=== PATIENT | female | born 2000 | race Caucasian/White ===

== ENCOUNTER 2020-09-05 13:00 | Inpatient (IN) | payer MEDICAID, SELFPAY ==
[2020-09-05] VITALS (94 sets, daily range): BP systolic 110–165; BP diastolic 56–113; PULSE 69–245; RESP 13–16; TEMP 36.6–37.7; O2SAT 82–99; BMI 34.4
[2020-09-05 12:53] LABS: Hemoglobin 12.4 g/dL (12.0-15.0); Mean Corp Hgb Conc 32.6 g/dL (32-36); Mean Corpuscular Hgb 27.9 pg (27.0-32.0); Mean Corpuscular Volume 85.4 fL (81-99); Mean Platelet Vol. 12.6 fl (6.2-12.0); Platelet Count 277 K/mm3 (150-450); RBC Distribution Width CV 13.4 % (11.6-14.6); RBC Distribution Width SD 41.1 fl (35.1-43.9); Red Blood Count 4.45 M/mm3 (4.2-5.4); White Blood Count 13.2 K/mm3 (4.4-11.0)
[2020-09-05 12:57] LABS: ROM Internal Control Test YES-OK TO RESULT pt. (Internal QC)
[2020-09-05 12:58] LABS: ROM Patient Test POSITIVE (Negative)
[2020-09-05 13:25] LABS: AST(SGOT) 14 U/L (15-37); Alanine Aminotransfer ALT/SGPT 14 U/L (13-56); Creatinine, Serum 0.79 mg/dL (0.55-1.02); EST Glomerular Filtration Rate 98 mL/min (>60); Est Glom Filt Rate - Afr Amer 119 mL/min (>60); Estimated Creatinine Clearance 102.22 ml/min; Uric Acid 7.3 mg/dL (2.6-6.0)
[2020-09-05] MEDS: Lactated Ringers 1,000 ML 50 ML IV (13:30)
[2020-09-05] MEDS: Magnesium Sulfate 4gm/100mL 4 GM/100 ML IV.SOLN. IV (13:41)
[2020-09-05] MEDS: Labetalol (Prefilled) 20 MG/4 ML IV (13:53)
[2020-09-05] MEDS: Magnesium Sulfate 4gm/100mL 2 GM/50 ML IV.SOLN. IV (14:04)
[2020-09-05 14:07] LABS: Protein, Urine (Random) 36.7 mg/dL (<11.9); Protein:Creat Ratio 353 mg/g CRE (0-200)
[2020-09-05] MEDS: Magnesium Sulfate 20 GM/500 ML BAG IV (14:22)
[2020-09-05] MEDS: miSOPROStol 25 MCG TABLET VAGINAL (14:37)
[2020-09-05] MEDS: Labetalol 100 MG Tablet PO ×2 (15:01→21:55)
[2020-09-05] MEDS: CLARIFY ORDER NOTE (16:00)
[2020-09-05] MEDS: Oxytocin 30 units/NS 500 ml 30 UNITS/500 ML IV.SOLN IV (18:58)
[2020-09-05] MEDS: Acetaminophen 500 MG Tablet 1000 MG PO (21:08)
[2020-09-05] MEDS: Lactated Ringers 500 ML 999 ML IV (21:55)
[2020-09-05] MEDS: fentaNYL-bupivacaine (epidural) 100 ML BAG EPIDURAL (23:09)
[2020-09-06] VITALS (67 sets, daily range): BP systolic 113–166; BP diastolic 53–98; PULSE 67–109; RESP 16–18; TEMP 35.7–37.3; O2SAT 81–99
[2020-09-06] MEDS: Ondansetron 4 MG/2 ML Vial IV ×2 (00:17→16:42)
[2020-09-06] MEDS: Magnesium Sulfate 20 GM/500 ML BAG IV ×3 (00:24→19:55)
[2020-09-06] MEDS: fentaNYL-bupivacaine (epidural) 100 ML BAG EPIDURAL ×3 (03:42→13:31)
[2020-09-06] MEDS: Acetaminophen 500 MG Tablet 1000 MG PO ×2 (05:00→13:38)
[2020-09-06] MEDS: Lactated Ringers 1,000 ML 100 ML IV ×2 (06:11→15:51)
--- NOTE | 2020-09-06 08:09 | PCM.HP.OB ---
History Date of Admission: 09/05/20 Final ANGIE: 09/15/20 Gestational age: 38 Weeks and 5 Days History of this : This is a 19 year-old, 1 para 0 was admitted at 38 weeks 4 days gestation on 09/05/2020 for premature rupture of membranes, and was found to have preeclampsia with severe features. She did not have a headache upon admission. She denied any vaginal bleeding or contractions. She had good movement. She denied epigastric pain. Allergies amoxicillin Adverse Reaction (Verified 09/05/20 13:32) Swelling oxycodone [From Percocet] Adverse Reaction (Verified 09/05/20 13:31) Swelling Home Medications: Home Medications Tablet 1 tab PO DAILY 09/05/20 Smoking Status: Never smoker Number of Fetus(es): 1 NST - FHR Rate Baby A Baseline: normal Variability:: Moderate NST Reactive:: Appropriate for gestational age FHR Category:: Category I - upon admission History Past Pregnancies: Past Pregnancies Delivery Date Name GA/ Weeks Outcome Route Wt Infant Sex Labor Length Anesthesia Delivery Location Provider FOB Expected Infant Delivery Method: Spontaneous Vaginal Review of Systems Constitutional: Denies: Chills, Fever Eyes: Denies: Blurred vision HEENT: Denies: Difficulty Hearing Cardiovascular: Denies: Chest Pain Respiratory: Denies: Cough, Shortness of Breath Gastrointestinal: Denies: Diarrhea, Vomiting Genitourinary: Denies: Dysuria Skin: Denies: Rash Neurological: Denies: Blurred vision, Change in Speech, Slurred speech Hematologic/ Lymphatic: Denies: Hx of blood clot Physical Exam Vitals: Vital Signs Temp Pulse Resp BP Pulse Ox 97.8 F 71 16 128/68 H 98 09/06/20 08:03 09/06/20 08:03 09/06/20 08:03 09/06/20 08:03 09/06/20 08:03 General: Alert, Cooperative, No apparent distress Cardiovascular: Regular rate Lungs: Normal air movement Abdomen: Soft, Non-Distended, Gravid, Appropriate for Gestational Age Extremities:: No clubbing, Deep tendon reflexes - 2+, Other - edema 2+ Neurological: Cranial nerves II-XII grossly intact, Neuro grossly intact. Negative for: Slurred Speech, Clonus DIRECTOR OPERATING ROOM: Normal external genitalia Estimated gestational size: Appropriate for gestational size Presentation: Cephalic Assessment/Plan This is a 19 year-old, 1 para 0 now at 38 weeks 5 days today with premature rupture of membranes. Induction of labor was performed with Cytotec vaginally, followed by Pitocin. Epidural was placed and is adequate. Patient is on magnesium for preeclampsia prophylaxis. heart tones are currently category 1 and reassuring. Continue Pitocin induction. Expectant management for vaginal delivery. Estimated weight is less than 4500 g clinically and pelvis is clinically adequate to expect vaginal delivery.
[2020-09-06] MEDS: 0.9% Saline Lock 10 ML Syringe IV ×2 (10:02→16:42)
[2020-09-06] MEDS: Labetalol 100 MG Tablet PO ×2 (10:03→21:56)
[2020-09-06] MEDS: DiphenhydrAMINE 50 MG/ML Syringe 25 MG IV (10:03)
[2020-09-06] MEDS: Oxytocin 30 units/NS 500 ml 30 UNITS/500 ML IV.SOLN 334 UNITS IV (19:05)
[2020-09-06] MEDS: miSOPROStol 200 MCG Tablet 1000 MCG RECTAL (19:12)
[2020-09-06] MEDS: HYDROmorphone 1 MG/ML Syringe IV (19:14)
[2020-09-06] MEDS: Carboprost Tromethamine 250 MCG/ML Ampul IM (19:15)
--- NOTE | 2020-09-06 19:31 | NURSING ---
Pt decided to give assent for Hep B vac on after delivery.
--- NOTE | 2020-09-06 19:37 | PCM.OPRPT ---
Vaginal Delivery Maternal Presentation: Medically Indicated Induction Method of Induction: Pitocin, Cytotec Medical Reason for Induction: Premature Rupture of Membranes, - - preeclampsia with severe features Amniotic Membrane Rupture Type: Spontaneous at home Amniotic Fluid Description: Clear Final ANGIE: 09/15/20 Final ANGIE Source: US <20 weeks Gestational age: 38 Weeks and 5 Days Date of Procedure: 09/06/20 Pre-Operative Diagnosis: maternal exhaustion Post-Operative Diagnosis: same Surgery/ Procedure Performed: Vacuum Assisted Vaginal Delivery - outlet Type of Anesthesia: Epidural Description of Procedure: The patient was complete and pushing. She was getting very frustrated. She was pushing and labia by 4 cm for 6 pushes. Patient was very frustrated and having difficulty concentrating on pushing. I offered the patient an outlet trial of vacuum. Patient desired to proceed. The catheter was in place. Estimated weight was less than 4500 g, pelvis clinically adequate to expect vaginal delivery. Patient epidural was feeling pressure but it was still working for sharp pain. The position was LYDIA. The vacuum was placed and suction created to 550 mmHg. I pulled with 1 contraction to and the vacuum was removed with 0 pop offs. A vigorous [female] infant was delivered [LYDIA] over [a second-degree perineal laceration]. [A loose nuchal cord ?1 was easily reduced.] The remainder the infant was delivered with maternal pushing and gentle traction only in less than 30 seconds with some encouragement to focus pushing efforts. The Pitocin infusion was initiated for active management of the third stage. The cord was clamped minute as the was not immediately vigorous. The infant was attended to by the waiting nursing staff. The placenta was delivered spontaneously and intact. The cervix and vagina were intact. Immediately uterine atony was noted. Vigorous fundal massage was initiated. The Pitocin was turned up. I asked for Hemabate and Cytotec to be brought in the room. 1000 mcg of Cytotec was given. And continued fundal massage. There continued to be some atony of the lower uterine segment. Another examination was done and no occult lacerations were noted. A dose of Hemabate IM was given and at this point the uterus began to firm up. [The second-degree perineal laceration was repaired with 3-0 Vicryl suture in a running standard fashion.] Nurse was a much more firm and no significant clots were now noted. Howie was turned down to the normal rate. Sponge and needle counts were correct. A vaginal sweep was completed by me. Was given a dose of Ancef postoperatively. She was also given 1 g of Dilaudid IV during the uterine massage and evacuation because of discomfort. Placental Delivery Description: Spontaneous Placenta Disposition: Sent to Pathology Cord Vessel Description: 3 Vessels Nuchal Cord Compression: Without compression Cord Entanglement: Around neck x 1, loose Drain: Sifuentes to straight drain Estimated Blood Loss: 900 A gender: Female Episiotomy Description: None Laceration: 2nd degree - perineal Medications given after delivery: IV Pitocin Complications: None
[2020-09-06] MEDS: Cefazolin 2 GM in 0.9% Normal Saline 100 ML IV (20:28)
[2020-09-06 23:36] LABS: Hemoglobin 10.9 g/dL (12.0-15.0); Mean Corp Hgb Conc 32.1 g/dL (32-36); Mean Corpuscular Hgb 28.1 pg (27.0-32.0); Mean Corpuscular Volume 87.6 fL (81-99); Mean Platelet Vol. 12.4 fl (6.2-12.0); Platelet Count 263 K/mm3 (150-450); RBC Distribution Width CV 13.7 % (11.6-14.6); RBC Distribution Width SD 43.4 fl (35.1-43.9); Red Blood Count 3.88 M/mm3 (4.2-5.4)
[2020-09-07] VITALS (40 sets, daily range): BP systolic 126–144; BP diastolic 58–83; PULSE 69–143; RESP 14–18; TEMP 36.6–37.2; O2SAT 82–100
--- NOTE | 2020-09-07 | PLAC_PTH ---
PATIENT: OMKAR VELASQUEZ LOC: [facility] U#:[id number] AGE/SX: 19/F ROOM: WP017 RE09/05/[address]: Dr. Christina Bee MD : [id number] BED: 1 DIS: 09/10/2020 SPEC #: [id number] RECD: 09/07/20 05:07 STATUS: MARIA G REQ #: [id number] BYRON: 09/07/20 00:[address]: Christina Bee DEPT: SURGICAL PATHOLOGY RECD BY: Conrad Brown ENTERED: 09/08/20 10:18 SP TYPE: PLACENTA OTHR DR: Dr. Mary Goodson, DO Tissues: Placenta, NOS Procedures: Surgery Specimen Level V HEADER OPERATION: Vaginal delivery PRE-OP DIAGNOSIS: Preeclampsia TISSUE SUBMITTED: Placenta MICROSCOPIC DIAGNOSIS Lemus placenta (513 gm): Umbilical cord - trivascular with no inflammation. Placental membranes - no pathologic change. Placental disc - Alfredo garcia. AM:whitley 09/10/20 MICROSCOPIC DESCRIPTION Slides are reviewed. GROSS DESCRIPTION SPECIMEN: PLACENTA / CLINICAL INFORMATION: A. Weight: 3.365 kg B. Gestational Age: 38 weeks C. Sex: Female PLACENTAL WEIGHT (POST FIXATION): 513 gm PLACENTAL DIMENSIONS: 18 x 17 x 3 cm PLACENTAL SHAPE: Usual ovoid PLACENTAL WEIGHT FOR GESTATIONAL AGE: Within 10-99th percentile MEMBRANES - Present A. Insertion: Marginal B. Site of rupture from edge: At edge of placental disc C. Color of membrane: Shaffer-doe D. Abnormalities: None UMBILICAL CORD - Present, three fragments A. Color: Shaffer-doe B. Insertion: Central C. Length: 42 cm D. Diameter: 1.2 cm E. Number of vessels: Three F. Abnormalities: None PLACENTAL DISC - Present A. Color of surface: Shaffer-doe B. surface abnormalities: None C. Maternal cotyledons: Intact with minimal tears D. Attached retro placental clot: No clot E. Cut surface: Dark red and spongy F. Lesions: None G. Separate clot: Blood clots measure 13 x 10 x 2 cm SECTIONS SUBMITTED: 1. Umbilical cord ( end notched) 2. Umbilical cord, placental end 3. Membrane roll 4. Placental disc, and maternal surfaces 5. Placental disc, and maternal surfaces 6. Placental disc, and maternal surfaces AM:whitley 09/09/20 TC:5 CPT: 58185
[2020-09-07] MEDS: Acetaminophen 500 MG Tablet 1000 MG PO ×2 (02:03→10:20)
[2020-09-07] MEDS: Magnesium Sulfate 20 GM/500 ML BAG IV ×2 (05:56→16:07)
[2020-09-07] MEDS: Naproxen 250 MG Tablet 500 MG PO ×3 (06:07→22:21)
[2020-09-07 06:39] LABS: Pathology Specimen OB SEE PATHOLOGY REPORT
--- NOTE | 2020-09-07 07:48 | PCM.PN.OB ---
Subjective: Patient with some mild cramping and perineal pain controlled with conservative measures and medications. She denies headache or visual changes or epigastric pain. Average lochia. - Physical Exam Vitals/I&O's: Vital Signs Temp Pulse Resp BP Pulse Ox 98.1 F 85 16 136/74 H 98 09/07/20 07:05 09/07/20 07:13 09/07/20 07:05 09/07/20 07:13 09/07/20 07:05 Oxygen Delivery Method Room Air Weight: 93.894 kg Body Mass Index (BMI) 34.4 Intake and Output for Last 24 Hours 09/05/20 09/06/20 09/07/20 23:59 23:59 23:59 Intake Total 1849.16 / 1949.16 5406.29 / 5406.29 1703.32 / 1703.32 Output Total 1100 / 1100 4350 / 4350 850 / 850 Balance 749.16 / 849.16 1056.29 / 1056.29 853.32 / 853.32 General: Alert, Cooperative, No apparent distress Extremities: Edema - 1+ Neurological: Deep Tendon Reflexes 2+/4 and Symmetrical, Neuro grossly intact, - - no clonus Microbiology Past 72 Hours 09/05/20 15:56 Mucosa - Nose SARS-CoV-2 Antigen (Rapid) - Final Laboratory Results 09/06/20 23:10: WBC 22.0 H, RBC 3.88 L, Hgb 10.9 L, Hct 34.0 L, MCV 87.6, MCH 28.1, MCHC 32.1, RDW Std Deviation 43.4, RDW Coeff of Vickie 13.7, Plt Count 263, MPV 12.4 H Current Medications Acetaminophen (Acetaminophen 500 Mg Tablet) 1,000 mg PO Q8H PRN PRN PRN Reason: Pain Score 1-3 Last Admin: 09/07/20 02:03 Dose: 1,000 mg Documented by: Bisacodyl (Bisacodyl 10 Mg Suppository) 10 mg RECTAL UD PRN PRN Reason: If no BM Dibucaine (Dibucaine 30 Gm Tube) 1 applic TOPICAL TID PRN PRN; Protocol PRN Reason: Discomfort Hydrocortisone (Hydrocortisone 2.5% Crm) 1 applic TOPICAL TID PRN PRN; Protocol PRN Reason: Discomfort Magnesium Sulfate (20gm/500ml) 20 gm in 500 mls @ 50 mls/hr IV .Q10H [facility]; Protocol Last Infusion: 09/07/20 07:05 Dose: 2 gm/hr, 50 mls/hr Documented by: Labetalol HCl (Labetalol 100 Mg Tablet) 100 mg PO BID JESSICA Last Admin: 09/06/20 21:56 Dose: 100 mg Documented by: Methylergonovine Maleate (Methylergonovine 0.2 Mg/Ml Ampul) 0.2 mg IM X1 PRN PRN Reason: Excess bleeding/uterine atony Naproxen (Naproxen 250 Mg Tablet) 500 mg PO Q8H PRN PRN PRN Reason: Pain Score 1-3 Last Admin: 09/07/20 06:07 Dose: 500 mg Documented by: Ondansetron HCl (Ondansetron 4 Mg/2 Ml Vial) 4 mg IV Q4H PRN PRN PRN Reason: Nausea Oxycodone HCl (Oxycodone 5 Mg Tablet) 5 - 10 mg PO Q4H PRN PRN PRN Reason: Pain Score 4-10 Prochlorperazine Edisylate (Prochlorperazine 10 Mg/2 Ml Vial) 10 mg IV Q6H PRN PRN PRN Reason: NAUSEA/VOMITING Senna/Docusate Sodium (Senna/Docusate Sodium 1 Tablet) 1 - 2 tablet PO DAILY PRN PRN PRN Reason: Constipation Simethicone (Simethicone 80 Mg Tablet) 80 mg PO PCHS PRN PRN Reason: Indigestion/Stomach pain Sodium Chloride (0.9% Saline Lock 10 Ml Syringe) 5 - 15 ml IV UD PRN PRN Reason: SALINE FLUSH Medical Necessity - Tobacco Use Smoking Status: Never smoker Assessment/Plan day #1 status post vaginal delivery. Patient with preeclampsia with severe features. Blood pressure is well controlled. Continue magnesium for 24 hours postdelivery. Patient had atony without hemorrhage. Hemoglobin dropped appropriately for blood loss last night. Repeat today to make sure it stable. Patient is asymptomatic from the anemia at this time.
[2020-09-07] MEDS: Labetalol 100 MG Tablet PO ×2 (10:21→22:17)
[2020-09-07 13:47] LABS: Hematocrit 29.3 % (37-47); Hemoglobin 9.4 g/dL (12.0-15.0); Mean Corp Hgb Conc 32.1 g/dL (32-36); Mean Corpuscular Hgb 28.2 pg (27.0-32.0); Mean Platelet Vol. 11.8 fl (6.2-12.0); Platelet Count 228 K/mm3 (150-450); RBC Distribution Width CV 14.3 % (11.6-14.6); RBC Distribution Width SD 45.5 fl (35.1-43.9); Red Blood Count 3.33 M/mm3 (4.2-5.4); White Blood Count 15.7 K/mm3 (4.4-11.0)
[2020-09-07] MEDS: 0.9% Saline Lock 10 ML Syringe IV (22:22)
[2020-09-08] VITALS (11 sets, daily range): BP systolic 129–176; BP diastolic 62–93; PULSE 54–76; RESP 16; TEMP 36.8–37.1; O2SAT 97–100
[2020-09-08] MEDS: Acetaminophen 500 MG Tablet 1000 MG PO ×2 (01:35→13:47)
[2020-09-08] MEDS: Naproxen 250 MG Tablet 500 MG PO ×2 (09:03→19:33)
[2020-09-08] MEDS: Labetalol 100 MG Tablet PO (10:26)
[2020-09-08] MEDS: 0.9% Saline Lock 10 ML Syringe IV (10:27)
--- NOTE | 2020-09-08 14:45 | PCM.PN.OB ---
Objective: Doing well per patient and nursing staff. Ambulating and taking PO without difficulty. Voiding and passing flatus. . Pain controlled. - Physical Exam Vitals/I&O's: Vital Signs Temp Pulse Resp BP Pulse Ox 98.3 F 57 L 16 145/78 H 97 09/08/20 13:32 09/08/20 13:34 09/08/20 13:32 09/08/20 13:34 09/08/20 08:49 Oxygen Delivery Method Room Air Weight: 207 lb Body Mass Index (BMI) 34.4 Intake and Output for Last 24 Hours 09/06/20 09/07/20 09/08/20 23:59 23:59 23:59 Intake Total 5406.29 / 5406.29 4302.49 / 4302.49 Output Total 4350 / 4350 2650 / 2650 Balance 1056.29 / 1056.29 1652.49 / 1652.49 General: Alert, Oriented x3, Cooperative HEENT: Atraumatic, Normocephalic Neck: Trachea Midline Lungs: Clear to auscultation, Normal air movement, No rhonchi, No wheeze Cardiovascular: Regular rate, Regular Rhythm, No murmurs Abdomen: Bowel Sounds Present - Fundus firm 2 below U Extremities: No edema - Shaunna's negative Neurological: Deep Tendon Reflexes 2+/4 and Symmetrical - no clonus Psych/Mental Status: Normal Affect, Appropriate Microbiology Past 72 Hours 09/05/20 15:56 Mucosa - Nose SARS-CoV-2 Antigen (Rapid) - Final Current Medications Acetaminophen (Acetaminophen 500 Mg Tablet) 1,000 mg PO Q8H PRN PRN PRN Reason: Pain Score 1-3 Last Admin: 09/08/20 13:47 Dose: 1,000 mg Documented by: Bisacodyl (Bisacodyl 10 Mg Suppository) 10 mg RECTAL UD PRN PRN Reason: If no BM Dibucaine (Dibucaine 30 Gm Tube) 1 applic TOPICAL TID PRN PRN; Protocol PRN Reason: Discomfort Hydrocortisone (Hydrocortisone 2.5% Crm) 1 applic TOPICAL TID PRN PRN; Protocol PRN Reason: Discomfort Labetalol HCl (Labetalol 100 Mg Tablet) 100 mg PO BID JESSICA Last Admin: 09/08/20 10:26 Dose: 100 mg Documented by: Methylergonovine Maleate (Methylergonovine 0.2 Mg/Ml Ampul) 0.2 mg IM X1 PRN PRN Reason: Excess bleeding/uterine atony Naproxen (Naproxen 250 Mg Tablet) 500 mg PO Q8H PRN PRN PRN Reason: Pain Score 1-3 Last Admin: 09/08/20 09:03 Dose: 500 mg Documented by: Ondansetron HCl (Ondansetron 4 Mg/2 Ml Vial) 4 mg IV Q4H PRN PRN PRN Reason: Nausea Prochlorperazine Edisylate (Prochlorperazine 10 Mg/2 Ml Vial) 10 mg IV Q6H PRN PRN PRN Reason: NAUSEA/VOMITING Senna/Docusate Sodium (Senna/Docusate Sodium 1 Tablet) 1 - 2 tablet PO DAILY PRN PRN PRN Reason: Constipation Simethicone (Simethicone 80 Mg Tablet) 80 mg PO PCHS PRN PRN Reason: Indigestion/Stomach pain Sodium Chloride (0.9% Saline Lock 10 Ml Syringe) 5 - 15 ml IV UD PRN PRN Reason: SALINE FLUSH Last Admin: 09/08/20 10:27 Dose: 10 ml Documented by: Medical Necessity - Tobacco Use Smoking Status: Never smoker Assessment/Plan A:PPD #2 Acute blood loss anemia hemorrhage Preeclampsia with severe features P: 1) Routine and education 2) Hgb 9.4, asymptomatic. 3) VS with increasing BP, will increase Labetalol from 100mg to 200mg PO BID. Reviewed with and agrees. 4) Planning D/C home tomorrow 5) Pain management
[2020-09-08] MEDS: Labetalol 200 MG Tablet PO (19:57)
[2020-09-09] VITALS (32 sets, daily range): BP systolic 129–182; BP diastolic 72–102; PULSE 54–88; RESP 16–18; TEMP 36.3–37.3; O2SAT 97–99
[2020-09-09] MEDS: Acetaminophen 500 MG Tablet 1000 MG PO ×2 (00:52→14:11)
[2020-09-09] MEDS: 0.9% Saline Lock 10 ML Syringe IV ×2 (00:54→12:40)
--- NOTE | 2020-09-09 08:45 | PCM.PN.OB ---
Subjective: Patient seen at bedside, doing well. Patient reports good pain control. Mild lochia. Patient denies any headaches, visual changes, epigastric or right upper quadrant pain. Breast-feeding. - Physical Exam Vitals/I&O's: Vital Signs Temp Pulse Resp BP Pulse Ox 98.2 F 71 16 134/72 H 100 09/09/20 00:53 09/09/20 00:54 09/09/20 00:53 09/09/20 00:54 09/08/20 19:28 Oxygen Delivery Method Room Air Weight: 93.894 kg Body Mass Index (BMI) 34.4 Intake and Output for Last 24 Hours 09/07/20 09/08/20 09/09/20 23:59 23:59 23:59 Intake Total 4302.49 / 4302.49 Output Total 2650 / 2650 Balance 1652.49 / 1652.49 General: Alert, Oriented x3 Abdomen: Soft, Non Tender, Non-Distended, - - fundus firm Extremities: No Calf Tenderness Neurological: Cranial nerves II-XII grossly intact Current Medications Acetaminophen (Acetaminophen 500 Mg Tablet) 1,000 mg PO Q8H PRN PRN PRN Reason: Pain Score 1-3 Last Admin: 09/09/20 00:52 Dose: 1,000 mg Documented by: Bisacodyl (Bisacodyl 10 Mg Suppository) 10 mg RECTAL UD PRN PRN Reason: If no BM Dibucaine (Dibucaine 30 Gm Tube) 1 applic TOPICAL TID PRN PRN; Protocol PRN Reason: Discomfort Hydrocortisone (Hydrocortisone 2.5% Crm) 1 applic TOPICAL TID PRN PRN; Protocol PRN Reason: Discomfort Labetalol HCl (Labetalol 200 Mg Tablet) 200 mg PO BID JESSICA Last Admin: 09/08/20 19:57 Dose: 200 mg Documented by: Methylergonovine Maleate (Methylergonovine 0.2 Mg/Ml Ampul) 0.2 mg IM X1 PRN PRN Reason: Excess bleeding/uterine atony Naproxen (Naproxen 250 Mg Tablet) 500 mg PO Q8H PRN PRN PRN Reason: Pain Score 1-3 Last Admin: 09/08/20 19:33 Dose: 500 mg Documented by: Ondansetron HCl (Ondansetron 4 Mg/2 Ml Vial) 4 mg IV Q4H PRN PRN PRN Reason: Nausea Prochlorperazine Edisylate (Prochlorperazine 10 Mg/2 Ml Vial) 10 mg IV Q6H PRN PRN PRN Reason: NAUSEA/VOMITING Senna/Docusate Sodium (Senna/Docusate Sodium 1 Tablet) 1 - 2 tablet PO DAILY PRN PRN PRN Reason: Constipation Simethicone (Simethicone 80 Mg Tablet) 80 mg PO PCHS PRN PRN Reason: Indigestion/Stomach pain Sodium Chloride (0.9% Saline Lock 10 Ml Syringe) 5 - 15 ml IV UD PRN PRN Reason: SALINE FLUSH Last Admin: 09/09/20 00:54 Dose: 10 ml Documented by: Medical Necessity - Tobacco Use Smoking Status: Never smoker Assessment/Plan PPD#3, with severe pre E s/p Magnesium 1) dc home today- follow up in office tuesday at 9am 09/12/20 for BP check 2) continue labetalol 3) dc home
--- NOTE | 2020-09-09 08:47 | DCINST_ITS ---
Discharge Diet: No Restrictions Discharge Activity: Return to Normal Activity, May not drive while taking narcotic pain medications., May Shower May resume sexual activity in: 4-6 weeks Additional Activity Instructions:: Nothing in the vagina for 4-6 weeks. You may return to work/school in 6 weeks. Call your doctor if your incision/area has: Continuous Slow Oozing, Sudden Increased Bleeding, Increased Pain/ Swelling, Increased Redness, Foul Smelling Discharge Additional Instructions: If you experience any of the following, contact your healthcare provider. * Bleeding that soaks a pad every hour for 2 hours * Fever 100.4 or higher * Unrelieved incision or abdominal pain * Swelling, redness, discharge or bleeding from your incision or episiotomy site * Your incision begins to separate * Problems urinating (including inability to urinate or burning while urinating). * Visual changes * Severe headache * Flu-like symptoms * Pain or redness in one of both of your breasts * Pain, warmth, tenderness or swelling in your legs, especially the calf area * Frequent nausea and vomiting * Symptoms of depression or anxiety If you experience any of the following, call 911 or go to the nearest Emergency Room. * Chest pain * Problems breathing * Seizure activity * Partial or complete paralysis of a body part, slurred speech, weakness or drooping of the face, or a sudden inability to walk or hold your balance Allergies/Adverse Reactions: Allergies amoxicillin Adverse Reaction (Verified 09/05/20 13:32) Swelling oxycodone [From Percocet] Adverse Reaction (Verified 09/05/20 13:31) Swelling Medications to take at Discharge Tablet 1 tab PO DAILY 09/05/20 Labetalol [Trandate (Beta Dejuan)] 200 mg PO BID #60 tab 09/09/20 Naproxen [Naprosyn] 500 mg PO Q8H PRN PRN #30 tab 09/09/20 The following prescriptions were given: Naproxen [Naprosyn] 500 mg PO Q8H PRN PRN #30 tab PRN Reason: Pain Score 1-3 Transmission Status: Pending to [facility] Labetalol [Trandate (Beta Dejuan)] 200 mg PO BID #60 tab Transmission Status: Pending to [facility] Please Follow Up With: Christina Bee MD - [phone] When: Follow in office tuesday09/12/20 at 9am for BP check. Primary Care Physician: Mary Goodson DO [Primary Care Provider] - Test Results: Test results from this visit will be discussed in further detail at your follow- up appointment, if applicable.
[2020-09-09] MEDS: Labetalol 200 MG Tablet PO (09:02)
--- NOTE | 2020-09-09 11:12 | NURSING ---
Pt updated on POC concerning elevated Blood pressures. Will recheck BP at [address] Valerio on BP. Also discussed giving labetalol at 1400. Pt verbalzed understanding
[2020-09-09] MEDS: Labetalol 200 MG Tablet 300 MG PO ×2 (12:39→20:16)
--- NOTE | 2020-09-09 17:42 | NURSING ---
Pt denies symptoms of elevated BP and states, I'm just so stressed out about my BP being high and taken so often. I just want to go home.
[2020-09-09] MEDS: NIFEdipine 30 MG Tablet PO ×2 (18:15→18:16)
[2020-09-09] MEDS: Naproxen 250 MG Tablet 500 MG PO (20:16)
[2020-09-10] VITALS (7 sets, daily range): BP systolic 111–142; BP diastolic 62–76; PULSE 56–73; RESP 16–18; TEMP 36.7–37.2; O2SAT 99
[2020-09-10] MEDS: 0.9% Saline Lock 10 ML Syringe IV (01:13)
[2020-09-10] MEDS: Labetalol 200 MG Tablet 300 MG PO (05:30)
[2020-09-10] MEDS: Naproxen 250 MG Tablet 500 MG PO (05:30)
--- NOTE | 2020-09-10 09:02 | PN.OBGYN_ITS ---
Subjective: Patient denies headache, will disturbances or epigastric pain. She is had a bowel movement, her pain is well controlled. She is ambulating and urinating without difficulty. - Physical Exam Vitals/I&O's: Vital Signs Temp Pulse Resp BP Pulse Ox 98.4 F 65 18 111/62 99 09/10/20 05:24 09/10/20 05:24 09/10/20 05:24 09/10/20 05:24 09/10/20 05:23 Oxygen Delivery Method Room Air Weight: 93.894 kg Body Mass Index (BMI) 34.4 General: Alert, Cooperative, No apparent distress Extremities: Edema - 2+ Neurological: Deep Tendon Reflexes 2+/4 and Symmetrical, Neuro grossly intact Current Medications Acetaminophen (Acetaminophen 500 Mg Tablet) 1,000 mg PO Q8H PRN PRN PRN Reason: Pain Score 1-3 Last Admin: 09/09/20 14:11 Dose: 1,000 mg Documented by: Bisacodyl (Bisacodyl 10 Mg Suppository) 10 mg RECTAL UD PRN PRN Reason: If no BM Dibucaine (Dibucaine 30 Gm Tube) 1 applic TOPICAL TID PRN PRN; Protocol PRN Reason: Discomfort Hydrocortisone (Hydrocortisone 2.5% Crm) 1 applic TOPICAL TID PRN PRN; Protocol PRN Reason: Discomfort Labetalol HCl (Labetalol 200 Mg Tablet) 300 mg PO TID [facility] Last Admin: 09/10/20 05:30 Dose: 300 mg Documented by: Methylergonovine Maleate (Methylergonovine 0.2 Mg/Ml Ampul) 0.2 mg IM X1 PRN PRN Reason: Excess bleeding/uterine atony Naproxen (Naproxen 250 Mg Tablet) 500 mg PO Q8H PRN PRN PRN Reason: Pain Score 1-3 Last Admin: 09/10/20 05:30 Dose: 500 mg Documented by: Nifedipine (Nifedipine 30 Mg Tablet) 30 mg PO DAILY [facility] Last Admin: 09/09/20 18:16 Dose: 30 mg Documented by: Ondansetron HCl (Ondansetron 4 Mg/2 Ml Vial) 4 mg IV Q4H PRN PRN PRN Reason: Nausea Prochlorperazine Edisylate (Prochlorperazine 10 Mg/2 Ml Vial) 10 mg IV Q6H PRN PRN PRN Reason: NAUSEA/VOMITING Senna/Docusate Sodium (Senna/Docusate Sodium 1 Tablet) 1 - 2 tablet PO DAILY PRN PRN PRN Reason: Constipation Simethicone (Simethicone 80 Mg Tablet) 80 mg PO PCHS PRN PRN Reason: Indigestion/Stomach pain Sodium Chloride (0.9% Saline Lock 10 Ml Syringe) 5 - 15 ml IV UD PRN PRN Reason: SALINE FLUSH Last Admin: 09/10/20 01:13 Dose: 10 ml Documented by: Medical Necessity - Tobacco Use Smoking Status: Never smoker Assessment/Plan day #3 Pressures are better controlled with labetalol and Procardia. Prescriptions were given for patient to take at home. Follow-up in the office in 2 days as scheduled. She has a home blood pressure cuff and I recommended that she monitor her blood pressures and call us if they got into the severe range. Call us if any symptoms of severe preeclampsia. Patient is comfortable with this plan. Discharge home today.
[2020-09-10] MEDS: Acetaminophen 500 MG Tablet 1000 MG PO (10:37)
[2020-09-10] MEDS: NIFEdipine 30 MG Tablet PO (10:37)
== END 2020-09-10 11:00 | disposition home or self-care (01) | DRG 560 ==
LOC: WPOUT 13:02 → WP 13:02
PROVIDERS: Admitting Provider Obstetrics & Gynecology; PCP Internal Medicine; Referring Provider Obstetrics & Gynecology; Visit Provider Obstetrics & Gynecology
DX: O75.81 Maternal exhaustion complicating labor and delivery (principal); O70.1 Second degree perineal laceration during delivery; O99.02 Anemia complicating childbirth; D62 Acute posthemorrhagic anemia; O72.1 Other immediate postpartum hemorrhage; O14.14 Severe pre-eclampsia complicating childbirth; O42.92 Full-term premature rupture of membranes, unspecified as to length of time between rupture and onset of labor; O69.1XX0 Labor and delivery complicated by cord around neck, with compression, not applicable or unspecified; Z3A.38 38 weeks gestation of pregnancy; Z37.0 Single live birth
CPT/HCPCS: 59025; 59050; 82565; 82570; 84112; 84156; 84450; 84460; 84550; 85027; 86850; 86900; 86901; 87426; 88307; 99218; J7120; A4216; G0378; J2405

== ENCOUNTER → 2021-01-15 16:14 | Outpatient (CLI) | payer MEDICAID, SELFPAY ==
[2021-01-15 13:32] VITALS: BMI 30.7
[2021-01-21 16:18] LABS: HPV Reflexed? NOT INDICATED
== END ==
PROVIDERS: PCP Internal Medicine; Visit Provider Obstetrics & Gynecology
DX: Z12.4 Encounter for screening for malignant neoplasm of cervix (principal)
CPT/HCPCS: 88175; G0145

== ENCOUNTER → 2023-06-22 | Outpatient (CLI) | payer BC, OTHER, MEDICAID, SELFPAY ==
[2023-06-22 17:31] LABS: Protein, Urine (Random) 18.8 mg/dL (<11.9); Protein:Creat Ratio 79 mg/g CRE (0-200)
[2023-06-24 22:06] LABS: Chlamydia By Nucleic Acid AMP Negative (Negative); Gonococcus By Nucleic Acid AMP Negative (Negative)
== END | disposition home or self-care (01) ==
LOC: LABSPEC 14:43
PROVIDERS: PCP Internal Medicine; Referring Provider Obstetrics & Gynecology; Visit Provider Obstetrics & Gynecology
DX: O09.299 Supervision of pregnancy with other poor reproductive or obstetric history, unspecified trimester (principal); Z3A.00 Weeks of gestation of pregnancy not specified
CPT/HCPCS: 82570; 84156; 87086; 87088; 87491; 87591

== ENCOUNTER → 2023-07-07 | Outpatient (CLI) | payer BC, MEDICAID, SELFPAY ==
[2023-07-07 13:21] LABS: NATERA MAILED SPECIMEN
[2023-07-07 13:45] LABS: Absolute Lymphocyte Count 1.36 X10^3/uL (0.83-4.51); Absolute Neutrophil Count 7.5 X10^3/uL (2.0-7.7); Basophil# 0.03 X10^3/uL; Basophil% 0.3 % (0-1); Eosinophil# 0.06 X10^3/uL; Eosinophils% 0.6 % (0-5); Hematocrit 38.7 % (37-47); Hemoglobin 13.1 g/dL (12.0-15.0); Lymphocyte # 1.36 X10^3/ul (0.83-4.51); Lymphocyte % 14.5 % (19-41); Mean Corp Hgb Conc 33.9 g/dL (32-36); Mean Corpuscular Hgb 29.8 pg (27.0-32.0); Mean Corpuscular Volume 88.2 fL (81-99); Mean Platelet Vol. 10.4 fl (6.2-12.0); Monocyte# 0.41 X10^3/uL; Monocyte% 4.4 % (0-10); NRBC Flagged by Analyzer 0 % (0-5); Neutrophil # 7.48 X10^3/uL (2.7-7.7); Neutrophil % 79.8 % (47-70); Platelet Count 281 K/mm3 (150-450); RBC Distribution Width CV 12.7 % (11.6-14.6); RBC Distribution Width SD 41.3 fl (35.1-43.9); Red Blood Count 4.39 M/mm3 (4.2-5.4); White Blood Count 9.4 K/mm3 (4.4-11.0)
[2023-07-07 14:36] LABS: ALB/GLOB Ratio 0.8 RATIO (0.9-2.4); AST(SGOT) 18 U/L (15-37); Alanine Aminotransfer ALT/SGPT 24 U/L (13-56); Albumin, Serum 3.4 g/dL (3.2-5.0); Alkaline Phosphatase 114 U/L (45-117); Anion Gap 5 (5-15); BUN 7 mg/dL (7-18); BUN/Creat Ratio 11.6 RATIO (10-20); Calcium,Total 8.9 mg/dL (8.5-10.1); Chloride 105 mmol/L (98-107); EST Glomerular Filtration Rate 130 mL/min (>60); Est Glom Filt Rate - Afr Amer 158 mL/min (>60); Globulin 4.2 g/dL (2.2-4.2); Glucose 95 mg/dL (74-106); Glucose Challenge Gest 1H 50g 95 mg/dL (70-140); Potassium 3.5 mmol/L (3.5-5.1); Protein, Total 7.6 g/dL (6.4-8.2); Sodium Level 136 mmol/L (136-145)
[2023-07-07 15:26] LABS: HIV - WCH Non-Reactive (Nonreactive); Hepatitis B Surface Antigen Non-Reactive (Nonreactive); Hepatitis C Antibody Non-Reactive (Nonreactive); Rubella IgG Reactive (Nonreactive); Syphilis Antibodies Non-reactive
== END | disposition home or self-care (01) ==
PROVIDERS: PCP Nurse Practitioner Family; Referring Provider Obstetrics & Gynecology; Visit Provider Obstetrics & Gynecology
DX: Z34.81 Encounter for supervision of other normal pregnancy, first trimester (principal)
CPT/HCPCS: 36415; 80053; 82950; 85025; 86703; 86762; 86780; 86803; 86850; 86900; 86901; 87340

== ENCOUNTER → 2023-09-09 | Outpatient (CLI) | payer BC, MEDICAID, SELFPAY | END | disposition home or self-care (01) | LOC: LABSPEC 12:01 | PROVIDERS: PCP Nurse Practitioner Family; Visit Provider Advanced Practice Midwife | DX: N89.8 Other specified noninflammatory disorders of vagina (principal) | CPT/HCPCS: 87086 ==

== ENCOUNTER → 2023-10-27 | Outpatient (CLI) | payer BC, MEDICAID, SELFPAY ==
[2023-10-27 12:02] LABS: Absolute Lymphocyte Count 1.46 X10^3/uL (0.83-4.51); Absolute Neutrophil Count 9.1 X10^3/uL (2.0-7.7); Basophil# 0.03 X10^3/uL; Basophil% 0.3 % (0-1); Eosinophil# 0.08 X10^3/uL; Eosinophils% 0.7 % (0-5); Hematocrit 36.5 % (37-47); Hemoglobin 11.7 g/dL (12.0-15.0); Lymphocyte # 1.46 X10^3/ul (0.83-4.51); Mean Corp Hgb Conc 32.1 g/dL (32-36); Mean Corpuscular Hgb 28.5 pg (27.0-32.0); Mean Platelet Vol. 10.2 fl (6.2-12.0); Monocyte# 0.49 X10^3/uL; Monocyte% 4.4 % (0-10); NRBC Flagged by Analyzer 0 % (0-5); Neutrophil # 9.09 X10^3/uL (2.7-7.7); Neutrophil % 81.1 % (47-70); Platelet Count 306 K/mm3 (150-450); RBC Distribution Width CV 13.6 % (11.6-14.6); RBC Distribution Width SD 44.2 fl (35.1-43.9); White Blood Count 11.2 K/mm3 (4.4-11.0)
[2023-10-27 12:46] LABS: Glucose Challenge Gest 1H 50g 121 mg/dL (70-140)
[2023-10-27 13:09] LABS: HIV - WCH Non-Reactive (Nonreactive); Syphilis Antibodies Non-reactive
== END | disposition home or self-care (01) ==
LOC: LAB 11:27
PROVIDERS: PCP Nurse Practitioner Family; Referring Provider Registered Nurse; Visit Provider Registered Nurse
DX: Z34.90 Encounter for supervision of normal pregnancy, unspecified, unspecified trimester (principal)
CPT/HCPCS: 36415; 82950; 85025; 86703; 86780; 86850; 86900; 86901

== ENCOUNTER 2024-01-02 11:45 | Inpatient (IN) | payer BC, MEDICAID, SELFPAY ==
[2024-01-02] VITALS (31 sets, daily range): BP systolic 106–146; BP diastolic 55–93; PULSE 67–92; RESP 16–21; TEMP 36.4–37.2; O2SAT 96–100; BMI 36.0
--- OUTSIDE RECORDS SUMMARY | 2024-01-02 13:46 | XMS RPT_ITS | CCD ---
Author Name Unknown Address [address] [place] [address] Organization [facility] Care Team Providers Care [facility] Pharmacy Technician Name Role Phone NONE, NONE Unavailable Unavailable WOOD JENIFER A Unavailable Unavailable WOOD JENIFER A Unavailable Unavailable NISHI FRASER Unavailable Unavailable NONE, NONE Unavailable Unavailable Arian Garcia Attending Unavailable Channing Hope Primary Care Unavailable [facility] Unavailable Eliot Sanchez Admitting Unavailable Eliot Sanchez Attending Unavailable Roc Dotson Unavailable Unavailable Oberhauser, Sushila L Unavailable Unavailable Vanda Lopez Unavailable Unavailable Oberhauser, Sushila Unavailable Unavailable Oberhauser, Sushila L Unavailable Unavailable Oberhauser, Sushila L Unavailable Unavailable Unavailable Oberhauser, Sushila L Unavailable [phone] Sushila Cruz Unavailable Unavailable BECKY CHAVEZ Attending Unavailab BECKY Briggs Admitting Unavailab le OBERHAUSER, SUSHILA Primary Care Unavailable Pooja Garsia Unavailable Unavailable Unavailable ROLY GARSIA PAWEL Primary Care Unavailab le Self, Referral Referring Unavailable ROLY GARSIA PAWEL Attending Unavailab ryland GARSIA, ROLY HOFFMAN PAWEL Primary Care Unavailab CHELSY Ortiz Attending CHELSY Galaviz Referring ROLY Sullivan PAWEL Referring Unavailab ROLY Colin PAWEL Primary Care Unavailab le ROLY GARSIA PAWEL Attending Unavailab le Self, Referral Referring Unavailable ADY, ROLY POOJA PAWEL Primary Care Unavailab le GARSIA, PROPERTY MANAGEMENT ASSISTANT POOJA PAWEL Attending Unavailab le GARSIA, PROPERTY MANAGEMENT ASSISTANT POOJA PAWEL Referring Unavailab le GARSIA, PROPERTY MANAGEMENT ASSISTANT POOJA PAWEL Primary Care Unavailab le GARSIA, PROPERTY MANAGEMENT ASSISTANT POOJA PAWEL Attending Unavailab le Driscoll BUTTON MAKER AND INSTALLER-PROPERTY MANAGEMENT ASSISTANT, Pooja D Primary Care Provider Oberhauser DO, Sushila L Unavailable Oberhauser DO, Sushila L Unavailable Driscoll BUTTON MAKER AND INSTALLER-PROPERTY MANAGEMENT ASSISTANT, Pooja D Unavailable Driscoll BUTTON MAKER AND INSTALLER-PROPERTY MANAGEMENT ASSISTANT, Pooja D Primary Care Provider Driscoll BUTTON MAKER AND INSTALLER-PROPERTY MANAGEMENT ASSISTANT, Pooja D Unavailable SARAI HENSLEY Primary Care Unavailable DEEPAK HILARIO Attending Unavailable JASBIR LEVINE Referring Unavailabl e DRISCOLL, POOJA D Attending Unavailable DRISCOLL, POOJA D Primary Care Unavailable DRISCOLL, POOJA D Attending Unavailable DRISCOLL, POOJA D Primary Care Unavailable DRISCOLL, POOJA D Attending Unavailable DRISCOLL, POOJA D Primary Care Unavailable DRISCOLL, POOJA D Attending Unavailable DRISCOLL, POOJA D Primary Care Unavailable Allergies Allergy Classification Reported Allergen(s) Allergy Type Date of Onset Reaction(s) Facility (1 source) Acetaminophen / oxyCODONE; Translations: [Percocet 5/325] Drug Allergy [facility] Repository (12 sources) Amoxicillin; Translations: [amoxicillin] Drug Allergy 8 Rash, Swelling [facility] Repository (1 source) Acetaminophen / oxyCODONE Drug Allergy Hives/Urticaria [facility] (5 sources) oxyCODONE; Translations: [OXYCODONE] Drug Allergy 1 Swelling [facility] Repository Medications Current Medications Medication Drug Class(es) Dates Sig (Normalized) Sig (Original) azithromycin 250 mg oral tablet (3 sources) Macrolide Antimicrobial Start: 12-14-2023 End: 12-18-2023 azithromycin (Zithromax) 250 mg tablet Indications: Acute non-recurrent maxillary sinusitis Take 2 tablets (500 mg) by mouth once daily for 1 day, THEN 1 tablet (250 mg) once daily for 4 days. Take 2 tabs (500 mg) by mouth today, than 1 daily for 4 days.. 6 tablet 0 12/14/2023 12/18/2023 Active Completed/Discontinued Medications Medication Drug Class(es) Dates Sig (Normalized) Sig (Original) 24 hr buPROPion hydrochloride 150 mg extended release oral tablet (4 sources) Aminoketone Start: 10-08-2019 End: 03-17-2021 take 1 tablet by mouth twice daily buPROPion HCl ER (XL) 150 MG Oral Tablet Extended Release 24 Hour Take 1 tablet po bid anxiety Quantity: 60 Refills: 2 Ordered: 23-Jan-2020 Sushila Goodson DO Start : 08-Oct-2019 End : 17-Mar-2021 Complete Problems Active Problems Problem Classification Problem Date Documented Da te Episodic/Chronic Abdominal pain (10 sources) Chronic abdominal pain; Translations: [Abdominal pain, unspecified site] Episodic Administrative/social admission (2 sources) Patient encounter status; Translations: [Other reasons for seeking consultation] Episodic Anxiety disorders (20 sources) Anxiety; Translations: [Anxiety state, unspecified] Onset: 12-15-2022 07-07-2023 Chronic Complications of surgical procedures or medical care (5 sources) Complication of ear piercing; Translations: [Open wound of external ear, unspecified site, complicated] Episodic Disorders of lipid metabolism (12 sources) Mixed hyperlipidemia; Translations: [Mixed hyperlipidemia] Onset: 12-15-2022 12-15-2022 Chronic External Injury - Adverse effects of medical drugs (1 source) Adverse effect of 4-Aminophenol derivatives, initial encounter; Translations: [ADVRS EFF 4-AMINOPHENOL DERIV INIT] Onset: 05-24-2018 Malaise and fatigue (3 sources) Malaise and fatigue; Translations: [Chronic fatigue, unspecified] Onset: 12-15-2022 12-15-2022 Chronic Malaise and fatigue (4 sources) Malaise and fatigue; Translations: [Other malaise and fatigue] Episodic Mood disorders (20 sources) Depressive disorder; Translations: [Depressive disorder, not elsewhere classified] Onset: 08-23-2018 07-07-2023 Chronic Other congenital anomalies (6 sources) Spina bifida occulta; Translations: [Congenital deformity of spine] Onset: 04-23-2015 07-07-2023 Chronic Other nutritional; endocrine; and metabolic disorders (8 sources) Body mass index 30+ - obesity; Translations: [Body Mass Index 30.0-30.9, adult] Chronic Other nutritional; endocrine; and metabolic disorders (10 sources) Weight loss; Translations: [Loss of weight] Episodic Other nutritional; endocrine; and metabolic disorders (2 sources) Overweight in adulthood with body mass index of 25 or more but less than 30; Translations: [Body Mass Index 29.0-29.9, adult] Episodic Other skin disorders (3 sources) Localized swelling, mass and lump, head; Translations: [LOCALIZED SWELLING MASS AND LUMP HEAD] Onset: 05-23-2018 Episodic Other upper respiratory disease (3 sources) Allergic rhinitis; Translations: [Allergic rhinitis, unspecified] Onset: 05-23-2014 07-07-2023 Chronic Other upper respiratory disease (1 source) Seasonal allergic rhinitis; Translations: [Other seasonal allergic rhinitis] 12-14-2023 Chronic Other upper respiratory disease (2 sources) Other seasonal allergic rhinitis; Translations: [Other seasonal allergic rhinitis] Onset: 07-07-2023 Chronic Other upper respiratory infections (7 sources) Acute upper respiratory infection; Translations: [Acute upper respiratory infections of unspecified site] Onset: 12-14-2023 07-11-2021 Episodic Residual codes; unclassified (2 sources) Influenza vaccination declined; Translations: [Vaccination not carried out because of patient refusal] Onset: 08-10-2022 Episodic Thyroid disorders (20 sources) Hypothyroidism; Translations: [Unspecified acquired hypothyroidism] Onset: 12-15-2022 12-15-2022 Chronic Unclassified (2 sources) COUGH, RUNNY NOSE 07-11-2021 Past or Other Problems Problem Classification Problem Date Documented Da te Episodic/Chronic Headache; including migraine (3 sources) Headache; Translations: [Headache] Onset: 07-11-2017 07-07-2023 Episodic Mood disorders (3 sources) Mood swings; Translations: [Emotional lability] Onset: 03-12-2013 07-07-2023 Episodic Noninfectious gastroenteritis (20 sources) Chronic diarrhea; Translations: [Diarrhea] Onset: 12-15-2022 12-15-2022 Episodic Other connective tissue disease (3 sources) Biceps tendinitis; Translations: [Bicipital tendinitis, unspecified shoulder] Onset: 03-31-2015 07-07-2023 Episodic Other connective tissue disease (3 sources) Muscle weakness; Translations: [Muscle weakness (generalized)] Onset: 03-31-2015 07-07-2023 Episodic Other connective tissue disease (3 sources) Impingement syndrome of shoulder region; Translations: [Impingement syndrome of unspecified shoulder] Onset: 03-31-2015 07-07-2023 Episodic Other gastrointestinal disorders (3 sources) Diarrhea; Translations: [Diarrhea, unspecified] Onset: 07-10-2012 07-07-2023 Episodic Other non-traumatic joint disorders (3 sources) Shoulder pain; Translations: [Pain in unspecified shoulder] Onset: 03-31-2015 07-07-2023 Episodic Other skin disorders (13 sources) Loss of hair; Translations: [Alopecia, unspecified] Onset: 12-15-2022 12-15-2022 Episodic Other skin disorders (5 sources) Acne vulgaris; Translations: [Acne vulgaris] Onset: 07-07-2023 07-07-2023 Episodic Other skin disorders (1 source) Acne vulgaris; Translations: [Acne vulgaris] Onset: 07-07-2023 Episodic Residual codes; unclassified (3 sources) Impulsive character; Translations: [Impulsiveness] Onset: 03-12-2013 07-07-2023 Episodic Spondylosis; intervertebral disc disorders; other back problems (6 sources) Low back pain; Translations: [Low back pain] Onset: 04-23-2015 07-07-2023 Episodic Unclassified (3 sources) Onset: 07-07-2023 Resolved: 12-14-2023 07-07-2023 NEGATED: Highlighted row has not occurred!Residual codes; unclassified (15 sources) Disease Episodic Results Test Name Value Interpretation Reference Range Facil ity Vital Signs Date Time Vital Sign Value Performing Clinician Facility 07-07-2023 14:12040 Body height 165.1 cm Pooja DONAHUE Work Phone: [facility] 07-07-2023 14:12-040 Body mass index (BMI) [Ratio] 31.62 kg/m2 Pooja DONAHUE Work Phone: [facility] 07-07-2023 14:12040 Body weight 86.18 kg Pooja DONAHUE Work Phone: [facility] 07-07-2023 14:12-0400 Diastolic blood pressure 73 mm[Hg] Pooja Driscoll BUTTON MAKER AND INSTALLER-PROPERTY MANAGEMENT ASSISTANT Work Phone: [facility] 07-07-2023 14:12-0400 Heart rate 98 /min Pooja Driscoll BUTTON MAKER AND INSTALLER-PROPERTY MANAGEMENT ASSISTANT Work Phone: [facility] 07-07-2023 14:12-0400 SaO2% (BldA) [Mass fraction] 99 % Pooja Driscoll BUTTON MAKER AND INSTALLER-PROPERTY MANAGEMENT ASSISTANT Work Phone: [facility] 07-07-2023 14:12-0400 Systolic blood pressure 105 mm[Hg] Pooja Driscoll BUTTON MAKER AND INSTALLER-PROPERTY MANAGEMENT ASSISTANT Work Phone: [facility] 08-10-2022 13:31-0400 Body height 165.1 cm oPoja Garsia Work Phone: [facility] Work Phone: 08-10-2022 13:31-0400 Body mass index (BMI) [Ratio] 29.62 kg/m2 Pooja Garsia Work Phone: [facility] Work Phone: 08-10-2022 13:31-0400 Body surface area Derived from formula 1.88 m2 Pooja Garsia Work Phone: [facility] Work Phone: 08-10-2022 13:31-0400 Body weight 80.74 kg Pooja Garsia Work Phone: [facility] Work Phone: 08-10-2022 13:31-0400 Diastolic blood pressure 80 mm[Hg] Pooja Garsia Work Phone: [facility] Work Phone: 08-10-2022 13:31-0400 Heart rate 86 /min Pooja Garsia Work Phone: [facility] Work Phone: 08-10-2022 13:31-0400 Systolic blood pressure 112 mm[Hg] Pooja D Garsia Work Phone: [facility] Work Phone: 06-24-2022 09:33-0400 Body height 165.1 cm Pooja D Garsia Work Phone: [facility] Work Phone: 06-24-2022 09:33-0400 Body mass index (BMI) [Ratio] 30.45 kg/m2 Pooja D Garsia Work Phone: [facility] Work Phone: 06-24-2022 09:33-0400 Body surface area Derived from formula 1.9 m2 Pooja D Garsia Work Phone: [facility] Work Phone: 06-24-2022 09:33-0400 Body weight 83 kg Pooja D Garsia Work Phone: [facility] Work Phone: 06-24-2022 09:33-0400 Diastolic blood pressure 85 mm[Hg] Pooja D Garsia Work Phone: [facility] Work Phone: 06-24-2022 09:33-0400 Heart rate 84 /min Pooja D Garsia Work Phone: [facility] Work Phone: 06-24-2022 09:33-0400 Systolic blood pressure 129 mm[Hg] Pooja D Garsia Work Phone: [facility] Work Phone: 05-11-2022 14:47-0400 Body height 165.1 cm Pooja D Garsia Work Phone: [facility] Work Phone: 05-11-2022 14:47-0400 Body mass index (BMI) [Ratio] 30.79 kg/m2 Pooja D Garsia Work Phone: [facility] Work Phone: 05-11-2022 14:47-0400 Body surface area Derived from formula 1.91 m2 Pooja Garsia Work Phone: [facility] Work Phone: 05-11-2022 14:47-0400 Body weight 83.91 kg Pooja Muñoz Ady Work Phone: [facility] Work Phone: 05-11-2022 14:47-0400 Diastolic blood pressure 80 mm[Hg] Pooja Muñoz Ady Work Phone: [facility] Work Phone: 05-11-2022 14:47-0400 Heart rate 72 /min Pooja Muñoz Ady Work Phone: [facility] Work Phone: 05-11-2022 14:47-0400 SaO2% (BldA) [Mass fraction] 98 % Pooja Garsia Work Phone: [facility] Work Phone: 05-11-2022 14:47-0400 Systolic blood pressure 132 mm[Hg] Pooja Garsia Work Phone: [facility] Work Phone: 04-27-2022 15:58-0400 Body height 165.1 cm Pooja Wanda Ady Work Phone: [facility] Work Phone: 04-27-2022 15:58-0400 Body mass index (BMI) [Ratio] 30.29 kg/m2 Pooja Wanda Garsia Work Phone: [facility] Work Phone: 04-27-2022 15:58-0400 Body surface area Derived from formula 1.9 m2 Pooja Muñoz Garsia Work Phone: [facility] Work Phone: 04-27-2022 15:58-0400 Body weight 82.55 kg Pooja Garsia Work Phone: [facility] Work Phone: 04-27-2022 15:58-0400 Diastolic blood pressure 86 mm[Hg] Pooja Churchkins Work Phone: [facility] Work Phone: 04-27-2022 15:58-0400 Heart rate 60 /min Pooja Churchkins Work Phone: [facility] Work Phone: 04-27-2022 15:58-0400 Systolic blood pressure 124 mm[Hg] Pooja Garsia Work Phone: [facility] Work Phone: 07-11-2021 14:41-0400 Body height 165.1 cm Sushila Goodson Other Phone: [facility] 07-11-2021 14:41-0400 Body temperature 98.96 [degF] Sushila Oberhauser Other Phone: [facility] 07-11-2021 14:41-0400 Diastolic blood pressure 91 mm[Hg] Sushila Oberhauser Other Phone: [facility] 07-11-2021 14:41-0400 Heart rate 81 /min Sushila Oberkaneer Other Phone: [facility] 07-11-2021 14:41-0400 Respiratory rate 16 /min Sushila Oberhauser Other Phone: [facility] 07-11-2021 14:41-0400 SaO2% (BldA) [Mass fraction] 98 % Sushila Oberkaneer Other Phone: [facility] 07-11-2021 14:41-0400 Systolic blood pressure 139 mm[Hg] Sushila Oberhauser Other Phone: [facility] 04-28-2021 08:44-0400 Body height 165.1 cm Sushila L Oberhauser Work Phone: [facility] Work Phone: 04-28-2021 08:44-0400 Body mass index (BMI) [Ratio] 29.12 kg/m2 Sushila L Oberhauser Work Phone: [facility] Work Phone: 04-28-2021 08:44-0400 Body surface area Derived from formula 1.87 m2 Sushila L Oberhauser Work Phone: [facility] Work Phone: 04-28-2021 08:44-0400 Body temperature 97.3 [degF] Sushila L Oberhauser Work Phone: [facility] Work Phone: 04-28-2021 08:44-0400 Body weight 79.38 kg Sushila L Oberhauser Work Phone: [facility] Work Phone: 04-28-2021 08:44-0400 Diastolic blood pressure 77 mm[Hg] Sushila L Oberhauser Work Phone: [facility] Work Phone: 04-28-2021 08:44-0400 Heart rate 72 /min Sushila L Oberhauser Work Phone: [facility] Work Phone: 04-28-2021 08:44-0400 Systolic blood pressure 117 mm[Hg] Sushila L Oberhauser Work Phone: [facility] Work Phone: 03-17-2021 08:48-0400 Body height 165.1 cm Sushila L Oberhauser Work Phone: [facility] Work Phone: 03-17-2021 08:48-0400 Body mass index (BMI) [Ratio] 29.12 kg/m2 Sushila L Oberhauser Work Phone: [facility] Work Phone: 03-17-2021 08:48-0400 Body surface area Derived from formula 1.87 m2 Sushila L Oberhauser Work Phone: [facility] Work Phone: 03-17-2021 08:48-0400 Body temperature 97.8 [degF] Sushila L Oberhauser Work Phone: [facility] Work Phone: 03-17-2021 08:48-0400 Body weight 79.38 kg Sushila L Oberhauser Work Phone: [facility] Work Phone: 03-17-2021 08:48-0400 Diastolic blood pressure 80 mm[Hg] Sushila L Oberhauser Work Phone: [facility] Work Phone: 03-17-2021 08:48-0400 Heart rate 68 /min Sushila L Oberhauser Work Phone: [facility] Work Phone: 03-17-2021 08:48-0400 Systolic blood pressure 121 mm[Hg] Sushila L Oberhauser Work Phone: [facility] Work Phone: 10-08-2019 13:09-0500 BMI (Body Mass Index) 26.63 kg/m2 Sushila Oberhauser [facility] Work Phone: 10-08-2019 13:09-0500 Body weight 72.58 kg Sushila Oberhauser [facility] Work Phone: 10-08-2019 13:09-0500 BP Diastolic 78 mm[Hg] Sushila Goodson [facility] Work Phone: Encounters Encounter Date Encounter Type Care Provider Facility Start: 12-14-2023 End: 12-14-2023 ambulatory POOJA DRISCOLL [facility] Start: 12-14-2023 End: 12-14-2023 Office outpatient visit 25 minutes Pooja DONAHUE Work Phone: [facility] Internal [facility] Procedures Date Procedure Procedure Detail Performing Clinician Start: 02-04-2023 Lipid 1996 panel - Serum or Plasma Pooja DONAHUE Work Phone: Start: 02-04-2023 Thyrotropin [Units/volume] in Serum or Plasma Pooja DONAHUE Work Phone: Start: 12-15-2022 Vaccine refused by patient Immunization not carried out because of patient refusal Pooja DONAHUE Work Phone: Start: 01-22-2021 Microscopic observation [Identifier] in Cervix by Cyto stain Pooja DONAHUE Work Phone: Start: 07-25-2019 Endoscopy - Upper GI Sushila Goodson Start: 07-18-2019 C-reactive protein Roc Mauri Start: 07-18-2019 CBC W Auto Differential panel - Blood Roc Mauri Start: 07-18-2019 CELIAC DISEASE SEROLOGY PANEL Roc Mauri Start: 07-18-2019 Comprehensive metabolic 2000 panel Roc Mauri Start: 07-18-2019 Sedimentation rate rbc automated Roc Mauri Start: 03-06-2019 Colonoscopy Pooja Garsia Work Phone: Colonoscopy Roc Mauri Extraction of wisdom tooth Roc Mauri Plan of Treatment Date Care Activity Detail Author Start: 2049 Zoster Vaccines (1 of 2) Zoster Vaccines (1 of 2) [facility] Start: 06-16-2030 DTaP/Tdap/Td Vaccines (8 - Td or Tdap) DTaP/Tdap/Td Vaccines (8 - Td or Tdap) [facility] Start: 02-05-2028 Lipid panel Lipid Panel [facility] Start: 02-05-2024 Thyroid stimulating hormone measurement TSH Level [facility] Start: 02-02-2024 End: 02-02-2024 Patient encounter procedure 02/02/2024 10:00 AM EDT Office Visit [facility] Medicine [address] [facility] [place] [id number] Pooja Driscoll APRN-ROLY [address] [facility] [place] [address] [facility] Start: 02-01-2024 End: 08-02-2024 CBC W Auto Differential panel - Blood CBC and Auto Differential Lab Routine Hypothyroidism, unspecified type Mixed hyperlipidemia Expected: 02/01/2024 (Approximate), Expires: 08/02/2024 [facility] Service Area Work Phone: Immunizations Immunization Date Immunization Notes Care Provider Fa cili 07-29-2020 influenza, injectabl e, quadrivalent, contains preservative Sushila Goodson Work Phone: [facility] Work Phone: 07-29-2020 influenza, seasonal, injectable Pooja Driscoll APRN-PROPERTY MANAGEMENT ASSISTANT Work Phone: [facility] Work Phone: 07-29-2020 influenza virus vacc ine, unspecified formulation Pooja Driscoll APRN-ROLY Work Phone: [facility] Work Phone: 06-16-2020 tetanus toxoid, redu kelle diphtheria toxoid, and acellular pertussis vaccine, adsorbed Sushila Goodson Work Phone: [facility] 05-17-2017 hepatitis A vaccine, adult dosage Pooja Driscoll APRN-PROPERTY MANAGEMENT ASSISTANT Work Phone: [facility] Work Phone: 05-17-2017 hepatitis A vaccine, pediatric/adolescent dosage, 2 dose schedule Sushila Goodson Work Phone: [facility] 05-17-2017 meningococcal oligosaccharide (groups A, C, Y and W-135) diphtheria toxoid conjugate vaccine (MCV4O) Pooja Driscoll APRN-[facility] Work Phone: [facility] Work Phone: 05-17-2017 meningococcal polysaccharide (groups A, C, Y and W-135) diphtheria toxoid conjugate vaccine (MCV4P) Sushila Petersonerkane Work Phone: [facility] 05-17-2017 hepatitis A and hepatitis B vaccine Pooja Alex BUTTON MAKER AND INSTALLER-PROPERTY MANAGEMENT ASSISTANT Work Phone: [facility] Work Phone: 04-11-2012 human papilloma viru s vaccine, quadrivalent Sushila Riley Oberkaneer Work Phone: [facility] 11-04-2011 human papilloma viru s vaccine, quadrivalent [facility]ush[facility] Work Phone: [facility] 05-31-2011 human papilloma viru s vaccine, quadrivalent Sushila L Oberhauser Work Phone: [facility] 05-31-2011 meningococcal polysaccharide (groups A, C, Y and W-135) diphtheria toxoid conjugate vaccine (MCV4P) Sushila Petersonerkane Work Phone: [facility] Work Phone: 05-31-2011 tetanus toxoid, redu kelle diphtheria toxoid, and acellular pertussis vaccine, adsorbed Sushila Riley [facility] Work Phone: [facility] 05-31-2011 varicella virus vaccine Maximo n [employer]mary [employer] Work Phone: [facility] 08-23-2008 influenza virus vacc ine, live, attenuated, for intranasal use Sushila Orona Work Phone: [facility] Work Phone: 08-23-2008 influenza, seasonal, injectable Pooja Driscoll BUTTON MAKER AND INSTALLER-PROPERTY MANAGEMENT ASSISTANT Work Phone: [facility] Work Phone: 11-20-2007 influenza virus vacc ine, unspecified formulation Pooja Driscoll BUTTON MAKER AND INSTALLER-PROPERTY MANAGEMENT ASSISTANT Work Phone: [facility] Work Phone: 11-20-2007 influenza virus vacc ine, whole virus Sushila L Oberhauser Work Phone: [facility] Work Phone: 11-20-2007 influenza, seasonal, injectable Pooja Driscoll BUTTON MAKER AND INSTALLER-PROPERTY MANAGEMENT ASSISTANT Work Phone: [facility] Work Phone: 01-05-2005 diphtheria, tetanus toxoids and acellular pertussis vaccine Pooja Driscoll BUTTON MAKER AND INSTALLER-PROPERTY MANAGEMENT ASSISTANT Work Phone: [facility] 01-05-2005 diphtheria, tetanus toxoids and acellular pertussis vaccine, unspecified formulation Sushila L Oberhauser Work Phone: [facility] Work Phone: 01-05-2005 measles, mumps and rubella virus vaccine Sushila L Oberhauser Work Phone: [facility] 01-05-2005 poliovirus vaccine, inactivated Sushila L Oberhauser Work Phone: [facility] Work Phone: 01-05-2005 poliovirus vaccine, unspecified formulation Pooja Driscoll BUTTON MAKER AND INSTALLER-PROPERTY MANAGEMENT ASSISTANT Work Phone: [facility] Work Phone: 10-08-2003 influenza virus vacc ine, unspecified formulation Pooja Driscoll BUTTON MAKER AND INSTALLER-PROPERTY MANAGEMENT ASSISTANT Work Phone: [facility] Work Phone: 10-08-2003 influenza virus vacc ine, whole virus Sushila L Oberhauser Work Phone: [facility] Work Phone: 10-08-2003 influenza, seasonal, injectable Pooja Driscoll APRN-PROPERTY MANAGEMENT ASSISTANT Work Phone: [facility] Work Phone: 11-15-2002 pneumococcal conjuga te vaccine, 7 valent Sushila Riley Oberhauser Work Phone: [facility] 2002 diphtheria, tetanus toxoids and acellular pertussis vaccine Pooja Driscoll APRN-PROPERTY MANAGEMENT ASSISTANT Work Phone: [facility] 2002 diphtheria, tetanus toxoids and acellular pertussis vaccine, unspecified formulation Sushila Riley Oberhauser Work Phone: [facility] Work Phone: 05-31-2001 meningococcal oligosaccharide (groups A, C, Y and W-135) diphtheria toxoid conjugate vaccine (MCV4O) Pooja Driscoll APRN-PROPERTY MANAGEMENT ASSISTANT Work Phone: [facility] Work Phone: 05-15-2001 pneumococcal conjuga te vaccine, 7 valent Sushila Riley Oberhauser Work Phone: [facility] 03-27-2001 pneumococcal conjuga te vaccine, 7 valent Sushila Riley Oberhauser Work Phone: [facility] 03-27-2001 poliovirus vaccine, inactivated Sushila Oronaer Work Phone: [facility] Work Phone: 03-27-2001 poliovirus vaccine, unspecified formulation Pooja Driscoll APRN-PROPERTY MANAGEMENT ASSISTANT Work Phone: [facility] Work Phone: 11-14-2000 haemophilus influenz ae type b conjugate and Hepatitis B vaccine Sushila Rosemary Oberhauser Work Phone: [facility] Work Phone: 11-14-2000 haemophilus influenz ae type b vaccine, conjugate unspecified formulation Pooja Driscoll APRN-PROPERTY MANAGEMENT ASSISTANT Work Phone: [facility] Work Phone: 11-14-2000 hepatitis B vaccine, adult dosage Pooja Alex JAMES-PROPERTY MANAGEMENT ASSISTANT Work Phone: [facility] Work Phone: 11-14-2000 measles, mumps and rubella virus vaccine Sushila Rosemary Oberkaneer Work Phone: [facility] 11-14-2000 varicella virus vaccine Maximo n Rosemary Oberkaneer Work Phone: [facility] 05-17-2000 diphtheria, tetanus toxoids and acellular pertussis vaccine Pooja Alex JAMES-PROPERTY MANAGEMENT ASSISTANT Work Phone: [facility] 05-17-2000 diphtheria, tetanus toxoids and acellular pertussis vaccine, unspecified formulation Sushila Petersonerkaneer Work Phone: [facility] Work Phone: 03-15-2000 diphtheria, tetanus toxoids and acellular pertussis vaccine Pooja Alex JAMES-PROPERTY MANAGEMENT ASSISTANT Work Phone: [facility] 03-15-2000 diphtheria, tetanus toxoids and acellular pertussis vaccine, unspecified formulation Sushila Riley Oberabhi Work Phone: [facility]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 Father Name Dates Details Family history of hypertensi on(V17.49, Z82.49) Status:Active Brother Name Dates Details Family history of Crohn's di sease(V18.59, Z83.79) Status:Active Father Name Dates Details Family history of hypertensi on(V17.49, Z82.49) Status:Active Brother Name Dates Details Family history of Crohn's di sease(V18.59, Z83.79) Status:Active Father Name Dates Details Family history of hypertensi on(V17.49, Z82.49) Status:Active Brother Name Dates Details Family history of Crohn's di sease(V18.59, Z83.79) Status:Active Father Name Dates Details Family history of hypertensi on(V17.49, Z82.49) Status:Active Brother Name Dates Details Family history of Crohn's di sease(V18.59, Z83.79) Status:Active Unknown Family Member Name Dates Details Family history of hypertensi on: Father(V17.49, Z82.49) Status:Active Family history of Crohn's di sease: Brother(V18.59, Z83.79) Status:Active Unknown Family Member Name Dates Details Family history of hypertensi on: Father(V17.49, Z82.49) Status:Active Family history of Crohn's di sease: Brother(V18.59, Z83.79) Status:Active Unknown Family Member Name Dates Details Family history of Crohn's di sease: Brother(V18.59, Z83.79) Status:Active Family history of hypertensi on: Father(V17.49, Z82.49) Status:Active Unknown Family Member Name Dates Details Family history of hypertensi on: Father(V17.49, Z82.49) Status:Active Family history of Crohn's di sease: Brother(V18.59, Z83.79) Status:Active Unknown Family Member Name Dates Details Family history of hypertensi on: Father(V17.49, Z82.49) Status:Active Family history of Crohn's di sease: Brother(V18.59, Z83.79) Status:Active Unknown Family Member Name Dates Details Family history of Crohn's di sease: Brother(V18.59, Z83.79) Status:Active Family history of hypertensi on: Father(V17.49, Z82.49) Status:Active Unknown Family Member Name Dates Details Family history of hypertensi on: Father(V17.49, Z82.49) Status:Active Family history of Crohn's di sease: Brother(V18.59, Z83.79) Status:Active Unknown Family Member Name Dates Details Family history of hypertensi on: Father(V17.49, Z82.49) Status:Active Family history of Crohn's di sease: Brother(V18.59, Z83.79) Status:Active Unknown Family Member Name Dates Details Family history of hypertensi on: Father(V17.49, Z82.49) Status:Active Family history of Crohn's di sease: Brother(V18.59, Z83.79) Status:Active Unknown Family Member Name Dates Details Family history of hypertensi on: Father(V17.49, Z82.49) Status:Active Family history of Crohn's di sease: Brother(V18.59, Z83.79) Status:Active Unknown Family Member Name Dates Details Family history of hypertensi on: Father(V17.49, Z82.49) Status:Active Family history of Crohn's di sease: Brother(V18.59, Z83.79) Status:Active Unknown Family Member Name Dates Details Family history of hypertensi on: Father(V17.49, Z82.49) Status:Active Family history of Crohn's di sease: Brother(V18.59, Z83.79) Status:Active Unknown Family Member Name Dates Details Family history of Crohn's di sease: Brother(V18.59, Z83.79) Status:Active Family history of hypertensi on: Father(V17.49, Z82.49) Status:Active Advance Directives No Advanced Directives Records FoundNo Advanced Directives Records FoundNo Advanced Directives Records FoundNo Advanced Directives Records FoundNo Advanced Directives Records FoundNo Advanced Directives Records FoundNo Advanced Directives Records FoundNo Advanced Directives Records Found Chief Complaint * 20 y/o female presents for issues with anxiety * Pt states she had a baby girl 6 months ago * Pt states she feels like her anxiety has been about the same * She keeps thinking her anxiety will just go away * Pt states during the day she doesn't think about things and she is happy and okay * Pt states at night when she is home alone she cannot cope * She states whenever her phone rings she feels someone is * She is always worried about her baby dying * 20 y/o female presents for issues with anxiety * Pt states she had a baby girl 6 months ago * Pt states she feels like her anxiety has been about the same * She keeps thinking her anxiety will just go away * Pt states during the day she doesn't think about things and she is happy and okay * Pt states at night when she is home alone she cannot cope * She states whenever her phone rings she feels someone is * She is always worried about her baby dying ESTABLISH NEW - TRANSFER DR. GOODSON. C/O ANXIETY - WAS ON LEXAPRO FOR A YEAR WHICH WAS INITIALLY HELPING BUT SHE NOTICED EFFICACY DECREASED SO SHE D/C MED APPROXIMATELY 3 MONTHS AGO. 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 patient says it too much to just deal with. patient admitted to not taking the buspirone because she didn t like the as needed.3 MONTH F/U LABS. PT DECLINES FLU VACCINE3 MONTH F/U LABS. PT DECLINES FLU VACCINE Additional Source Comments INFORMATION SOURCE (unrecogn ized section and content) DATE CREATED AUTHOR AUTHOR'S ORGANIZ ATION 02/20/2019 [facility] DATE CREATED AUTHOR AUTHOR'S ORGANIZ ATION 08/24/2021 [facility] DATE CREATED AUTHOR AUTHOR'S ORGANIZ ATION 05/22/2022 [facility] DATE CREATED AUTHOR AUTHOR'S ORGANIZ ATION 08/15/2022 [employer] DATE CREATED AUTHOR AUTHOR'S ORGANIZ ATION 02/06/2023 [facility] DATE CREATED AUTHOR AUTHOR'S ORGANIZ ATION 11/08/2023 [facility] DATE CREATED AUTHOR AUTHOR'S ORGANIZ ATION 12/21/2023 [facility] <item> Privacy Markings (unrecogniz ed section and content) Section Author: Heidy Reeves PROHIBITION ON REDISCLOSURE OF CONFIDENTIAL INFORMATION This notice accompanies a disclosure of information concerning a client made to you with the consent of such client. Reason for Visit (unrecogniz ed section and content) Reason Comments Follow-up 1 month med check, p t states she has noticed a change in her depression Reason Comments Cough Productive cough wit h green phlegm ,Sore throat , nasal congestion x 5 days. Pt has not taken a flu or covid test at this time Care Teams (unrecognized sec tion and content) Hospital Pharmacy Technician Relationship Specialty Start Date End Date Pooja Driscoll, BUTTON MAKER AND INSTALLER-PROPERTY MANAGEMENT ASSISTANT [address] [place] [address] PCP - General 04/27/22 Sushila Goodson, DO [address] [facility] [address] PCP - [facility] [place] [facility] 10/24/21 Sushila Goodson, DO [address] [facility] [place] [address] PCP - [facility] Medicaid PCP 01/22/23 Pooja Driscoll, BUTTON MAKER AND INSTALLER-PROPERTY MANAGEMENT ASSISTANT [address] [place] [address] PCP - [employer] O PCP 02/21/23 Hospital Pharmacy Technician Relationship Specialty Start Date End Date Pooja Driscoll, BUTTON MAKER AND INSTALLER-PROPERTY MANAGEMENT ASSISTANT [address] [place] [address] PCP - General 04/27/22 Sushila Goodson, DO [address] [facility] [address] PCP - [facility] [place] P[facility] 10/24/21 Sushila Goodson, DO [address] [facility] [address] PCP - [facility] Medicaid PCP 01/22/23 Pooja Driscoll, BUTTON MAKER AND INSTALLER-PROPERTY MANAGEMENT ASSISTANT [address] [place] [address] PCP - [facility] PCP 02/21/23 FOR RECORDS PERTAINING TO PATIENTS WHO ARE OR HAVE BEEN ENROLLED IN A CHEMICAL DEPENDENCY/SUBSTANCEABUSE PROGRAM, SOME INFORMATION MAY BE OMITTED. This clinical summary was aggregated from multiple sources. Caution should be exercised in using it in the provision of clinical care. This summary normalizes information from multiple sources, and as a consequence, information in this document may materially change the coding, format and clinical context of patient data. In addition, data may be omitted in some cases. CLINICAL DECISIONS SHOULD BE BASED ON THE PRIMARY CLINICAL RECORDS. [facility]. provides no warranty or guarantee of the accuracy or completeness of information in this document.
[2024-01-02] MEDS: Lactated Ringers 1,000 ML 50 ML IV (14:15)
[2024-01-02 14:36] LABS: Absolute Lymphocyte Count 1.62 X10^3/uL (0.83-4.51); Absolute Neutrophil Count 10.3 X10^3/uL (2.0-7.7); Basophil# 0.03 X10^3/uL; Basophil% 0.2 % (0-1); Eosinophil# 0.08 X10^3/uL; Eosinophils% 0.6 % (0-5); Hematocrit 35.6 % (37-47); Hemoglobin 11.6 g/dL (12.0-15.0); Lymphocyte # 1.62 X10^3/ul (0.83-4.51); Lymphocyte % 12.7 % (19-41); Mean Corp Hgb Conc 32.6 g/dL (32-36); Mean Corpuscular Volume 85.8 fL (81-99); Mean Platelet Vol. 10.5 fl (6.2-12.0); Monocyte# 0.64 X10^3/uL; NRBC Flagged by Analyzer 0 % (0-5); Neutrophil # 10.29 X10^3/uL (2.7-7.7); Platelet Count 309 K/mm3 (150-450); RBC Distribution Width CV 13.4 % (11.6-14.6); RBC Distribution Width SD 41.7 fl (35.1-43.9); Red Blood Count 4.15 M/mm3 (4.2-5.4); White Blood Count 12.7 K/mm3 (4.4-11.0)
[2024-01-02 14:49] LABS: AST(SGOT) 10 U/L (15-37); Alanine Aminotransfer ALT/SGPT 9 U/L (13-56); EST Glomerular Filtration Rate 129 mL/min (>60); Est Glom Filt Rate - Afr Amer 156 mL/min (>60)
[2024-01-02 14:52] LABS: Protein, Urine (Random) < 6.0 mg/dL (<11.9); Protein:Creat Ratio 279 mg/g CRE (0-200)
[2024-01-02] MEDS: miSOPROStol 25 MCG TABLET VAGINAL (14:56)
--- NOTE | 2024-01-02 17:31 | HP.PCM.OB_ITS ---
HPI - General General Date of Admission: 01/02/24 HPI Narrative OMKAR VELASQUEZ, is a 23 F who presents at 36.4 with severe feature PEC. started developing visual changes over the past few days and now has consistent floaters and sparkling light . denies headaches, ruq pain. BP in office 130s/90s with 5 pound weight gain. with significant history of PEC with first . Maternal Data Information ANGIE Calculator Estimated Delivery Date Method Current WG Current Estimate 01/26/24 LMP (Certain) 36w 4d PFSH PFSH Medical History (Updated 01/02/24 @ 15:35 by Viet Patel) Depression History of pre-eclampsia hemorrhage Thyroid disorder Home Medications PNV-iron 29 mg-folic acid 1 hs-dltdj-6-dha 200 mg oral combo pack pkg PO DAILY 06/14/23 [History Last Taken Unknown] levothyroxine 25 mcg capsule 25 mcg PO DAILY hypothyroidism 06/14/23 [History Last Taken 01/02/24 08:00 25 mcg] ondansetron 4 mg disintegrating tablet 4 mg PO Q6H PRN nausea and vomiting #30 tabs 06/23/23 [Rx Last Taken Unknown] sertraline 25 mg tablet (Zoloft) 25 mg PO DAILY anxiety/depression 07/13/23 [History Last Taken 01/02/24 08:00 25 mg] famotidine 20 mg tablet (Pepcid) 20 mg PO BID heartburn #90 tabs 11/14/23 [Rx Last Taken 01/02/24 08:00 20 mg] Allergy/AdvReac Type Severity Reaction Status Date / Time amoxicillin AdvReac Swelling Verified 12/26/23 09:56 oxycodone [From Percocet] AdvReac Swelling Verified 12/26/23 09:56 Family History Father Hypertension Social History adopted: No household members: family number of children: 1 current occupational status: employed current occupation: [employer] current occupational exposures/hazards: No pets and animals: Yes pets and animals: dog(s) history of recent travel: Yes out of state: Yes sexually active: Yes Smoking Status: Former smoker second hand exposure: No alcohol intake: never substance use type: does not use caffeine: Yes Type: carbonated beverages Number of servings: 1 and coffee Number of servings: 1 what type of physical activity do you participate in: aerobics frequency: 3-4 times per week seatbelt use: always do you feel safe at home: Yes additional social history: -Alejandro History 2 Elective abortions Hx Para 1 Spontaneous abortions Hx # Term Pregnancies 1 Ectopic pregnancies Hx # Pregnancies Multiple births # of living children 1 Past Pregnancies Del. Date Name GA/Weeks Outcome Route Bth Weight Infant Gen Labor Lgth Anesthesia Del Locatn Provider FOB 09/06/20 Myla 38 live - full term 7lbs 13oz Female e pidural [facility] Dr. Rohit Allen Delivery Date: 09/06/20 Last Updated by: Maya Ramey Pre-elampsia, hemorrhage, Received Mag with delivery and continued to have BP issues post delivery Visit Details Expected Delivery Route/Plan Labor Preferences- CB/BF classes: [] labor support person: Alejandro labor intervention preferences: [] pain management options preferred: epidural probably cut cord/dad catch: [] : [] PP control planned: [] discussed possible routes of delivery and associated risks: [] special requests: [] Plans Covid status: declined Flu vaccine: declined Tdap vaccine: declined Rhogam: na LARC form signed: declined movement and labor precautions reviewed. Problem list reviewed and updated with the most current plan of care details and appropriate orders placed. Relevant counseling for the gestational age provided. Continue routine care and follow up unless otherwise noted in visit notes/problem list details OB Flowsheet Initial Weight: Not Recorded Date -?-?-?-?-?-?-?-?-?-?-?-?- EGA Weight BP Urine Prot -?-?-?-?-?-?-?-?-?-?-?-?- Glucose FHR FuHt Pres Dilation -?-?-?-?-?-?-?-?-?-?-?-?- Effaced St Visit Note 06/22/23 -?-?-?-?-?-?-?-?-?-?-?-?- 8w 6d 187 lb 6 oz 124/81 -?-?-?-?-?-?-?-?-?-?-?-?- 175 -?-?-?-?-?-?-?-?-?-?-?-?- JV- CRL consiste nt with LMP. desires NIPT. she did a sneak peek already and was told it's a girl. had severe pre-e. ordering baseline labs and early glucola for bmi 31 07/13/23 -?-?-?-?-?-?-?-?-?-?-?-?- 11w 6d 189 lb 6 oz 116/71 Nega tive -?-?-?-?-?-?-?-?-?-?-?-?- Negative 160 -?-?-?-?-?-?-?-?-?-?-?-?- LC- no vb/crampi ng. discussed and declines afp. started zoloft. passed early glucose. 08/11/23 -?-?-?-?-?-?-?-?-?-?-?-?- 16w 0d 188 lb 122/63 Negative -?-?-?-?-?-?-?-?-?-?-?-?- Negative -?-?-?-?-?-?-?-?-?-?-?-?- Sm- no vb crampi ng less sickness this 09/09/23 -?-?-?-?-?-?-?-?-?-?-?-?- 20w 1d 189 lb 122/87 -?-?-?-?-?-?-?-?-?-?-?-?- 145 20 -?-?-?-?-?-?-?-?-?-?-?-?- KW- no vb/crampi ng. + movement. having some burning with urination. Culture sent. US next week. KW- no vb/cramping. + moveme nt. having some random burning with urination. encouraged increased hydration and Culture sent. US next week. encouraged chiropractor for back pain. 10/03/23 -?-?-?-?-?-?-?-?-?-?-?-?- 23w 4d 197 lb 2 oz 122/86 Nega tive -?-?-?-?-?-?-?-?-?-?-?-?- Negative 143 24 -?-?-?-?-?-?-?-?-?-?-?-?- LC-no vb/ctx/lof . good fm. 28 week labs ordered. 10/31/23 -?-?-?-?-?-?-?-?-?-?-?-?- 27w 4d 202 lb 8 oz 116/78 Nega tive -?-?-?-?-?-?-?-?-?-?-?-?- Negative 155 28 -?-?-?-?-?-?--?-?-?-?-?-?- LC- no vb/ctx/lo f. good fm. passed glucose. 11/14/23 -?-?-?-?-?-?-?-?-?-?-?-?- 29w 4d 207 lb 4 oz 121/80 Nega tive -?-?-?-?-?-?-?-?-?-?-?-?- Negative 130 30.5 -?-?-?-?-?-?-?-?-?-?-?-?- JV- pt declines tdap. no complaints. + FM. 11/28/23 -?-?-?-?-?-?-?-?-?-?-?-?- 31w 4d 204 lb 4 oz 119/81 Nega tive -?-?-?-?-?-?-?-?-?-?-?-?- Negative 150 32 -?-?-?-?-?-?-?-?-?-?-?-?- JV- no lof, vagi nal bleeding, or dec fm. worried about blood pressure. pt reassured today. 12/15/23 -?-?-?-?-?-?-?-?-?-?-?-?- 34w 0d 210 lb 117/78 Negative -?-?-?-?-?-?-?-?-?-?-?-?- Negative 140 34 -?-?-?-?-?-?-?-?-?-?-?-?- Sm- no vb lof go od fm no reuglar ctx 12/26/23 -?-?-?-?-?-?-?-?-?-?-?-?- 35w 4d 210 lb 4 oz 125/75 Nega tive -?-?-?-?-?-?-?-?--?-?-?-?- Negative 146 36 -?-?-?-?-?-?-?-?-?-?-?-?- JV- no lof, vagi nal bleeding, or dec fm. 01/02/24 -?-?-?-?-?-?-?-?-?-?-?-?- 36w 4d 215 lb 131/92 136/96 Negative -?-?-?-?-?-?-?-?-?-?-?-?- Negative 135 36 0 -?-?-?-?-?-?-?-?-?-?-?-?- 30 -3 LC- no lof /vb/ctx. good fm. elevate BP with visual changes. sent to [facility] for IOL with cytotec. reviewed with [facility], agrees with POC. GBS collected NST FHR Rate Baby A Baseline: 130 Variability:: Moderate Accelerations:: 15 x 15 Decelerations:: None NST Reactive:: Yes FHR Category:: Category I Uterine Activity:: irregular ROS Eyes Eyes: Reports change in vision Cardiovascular Cardiovascular: Denies abdominal pain, chest pain, diaphoresis or dyspnea Respiratory/Chest Respiratory/Chest: Denies change in mental status, chest congestion, chest tightness, cough, shortness of breath at rest, shortness of breath with exertion, breast mass, breast pain, breast skin changes, breast swelling, change in breast shape or nipple discharge Genitourinary Genitourinary: Reports change in urinary stream Musculoskeletal Musculoskeletal: Reports none Integumentary Integumentary: Reports none Neurologic Neurologic: Reports none Psychiatric Psychiatric: Reports none Endocrine Endocrinology: Reports none Hematologic/Lymphatic Hematologic/Lymphatic: Reports none Allergic/Immunologic Allergic/Immunologic: Reports none Vital Signs Vital Signs Vital Signs: 01/02/24 12:13 01/02/24 12:13 01/02/24 12:13 Temperature Temperature Source Pulse Rate 92 Respiratory Rate Blood Pressure 136/80 H BP Systolic 136 BP Diastolic 80 Pulse Ox 98 01/02/24 13:59 01/02/24 13:59 01/02/24 15:38 Temperature Temperature Source Pulse Rate 77 Respiratory Rate Blood Pressure 131/93 H 146/86 H BP Systolic 131 146 BP Diastolic 93 86 Pulse Ox 01/02/24 15:38 01/02/24 15:38 01/02/24 15:44 Temperature Temperature Source Tympanic Pulse Rate 69 Respiratory Rate Blood Pressure BP Systolic BP Diastolic Pulse Ox 98 01/02/24 15:44 01/02/24 15:44 01/02/24 15:44 Temperature Temperature Source Pulse Rate 70 Respiratory Rate 16 Blood Pressure 146/86 H BP Systolic 146 BP Diastolic 86 Pulse Ox 01/02/24 15:44 01/02/24 15:44 01/02/24 16:43 Temperature 98.4 F Temperature Source Pulse Rate 87 Respiratory Rate Blood Pressure BP Systolic BP Diastolic Pulse Ox 99 01/02/24 16:43 01/02/24 16:44 01/02/24 16:44 Temperature Temperature Source Pulse Rate 68 Respiratory Rate Blood Pressure 136/77 H BP Systolic 136 BP Diastolic 77 Pulse Ox 97 01/02/24 16:44 01/02/24 16:44 01/02/24 16:44 Temperature 99.0 F Temperature Source Temporal Pulse Rate Respiratory Rate 16 Blood Pressure BP Systolic BP Diastolic Pulse Ox Weight Weight: 216 lb 7.903 oz Body Mass Index (BMI) 36.0
--- NOTE | 2024-01-02 17:31 | PCM.HP.OB ---
HPI - General General Date of Admission: 01/02/24 HPI Narrative OMKAR VELASQUEZ, is a 23 F who presents at 36.4 with severe feature PEC. started developing visual changes over the past few days and now has consistent floaters and sparkling light . denies headaches, ruq pain. BP in office 130s/90s with 5 pound weight gain. with significant history of PEC with first . Maternal Data Information ANGIE Calculator Estimated Delivery Date Method Current WG Current Estimate 01/26/24 LMP (Certain) 36w 4d PFSH PFSH Medical History (Updated 01/02/24 @ 15:35 by Viet Patel) Depression History of pre-eclampsia hemorrhage Thyroid disorder Home Medications PNV-iron 29 mg-folic acid 1 iy-fazic-1-dha 200 mg oral combo pack pkg PO DAILY 06/14/23 [History Last Taken Unknown] levothyroxine 25 mcg capsule 25 mcg PO DAILY hypothyroidism 06/14/23 [History Last Taken 01/02/24 08:00 25 mcg] ondansetron 4 mg disintegrating tablet 4 mg PO Q6H PRN nausea and vomiting #30 tabs 06/23/23 [Rx Last Taken Unknown] sertraline 25 mg tablet (Zoloft) 25 mg PO DAILY anxiety/depression 07/13/23 [History Last Taken 01/02/24 08:00 25 mg] famotidine 20 mg tablet (Pepcid) 20 mg PO BID heartburn #90 tabs 11/14/23 [Rx Last Taken 01/02/24 08:00 20 mg] Allergy/AdvReac Type Severity Reaction Status Date / Time amoxicillin AdvReac Swelling Verified 12/26/23 09:56 oxycodone [From Percocet] AdvReac Swelling Verified 12/26/23 09:56 Family History Father Hypertension Social History adopted: No household members: family number of children: 1 current occupational status: employed current occupation: [employer] current occupational exposures/hazards: No pets and animals: Yes pets and animals: dog(s) history of recent travel: Yes out of state: Yes sexually active: Yes Smoking Status: Former smoker second hand exposure: No alcohol intake: never substance use type: does not use caffeine: Yes Type: carbonated beverages Number of servings: 1 and coffee Number of servings: 1 what type of physical activity do you participate in: aerobics frequency: 3-4 times per week seatbelt use: always do you feel safe at home: Yes additional social history: -Alejandro History 2 Elective abortions Hx Para 1 Spontaneous abortions Hx # Term Pregnancies 1 Ectopic pregnancies Hx # Pregnancies Multiple births # of living children 1 Past Pregnancies Del. Date Name GA/Weeks Outcome Route Bth Weight Infant Gen Labor Lgth Anesthesia Del Locatn Provider FOB 09/06/20 Myla 38 live - full term 7lbs 13oz Female epidural [facility] Dr. Rohit Allen Delivery Date: 09/06/20 Last Updated by: Maya Ramey Pre-elampsia, hemorrhage, Received Mag with delivery and continued to have BP issues post delivery Visit Details Expected Delivery Route/Plan Labor Preferences- CB/BF classes: [] labor support person: Alejandro labor intervention preferences: [] pain management options preferred: epidural probably cut cord/dad catch: [] : [] PP control planned: [] discussed possible routes of delivery and associated risks: [] special requests: [] Plans Covid status: declined Flu vaccine: declined Tdap vaccine: declined Rhogam: na LARC form signed: declined movement and labor precautions reviewed. Problem list reviewed and updated with the most current plan of care details and appropriate orders placed. Relevant counseling for the gestational age provided. Continue routine care and follow up unless otherwise noted in visit notes/problem list details OB Flowsheet Initial Weight: Not Recorded Date <del>?</del> EGA Weight BP Urine Prot <del>?</del> Glucose FHR FuHt Pres Dilation <del>?</del> Effaced St Visit Note 06/22/23 <del>?</del> 8w 6d 187 lb 6 oz 124/81 <del>?</del> 175 <del>?</del> JV- CRL consistent with LMP. desires NIPT. she did a sneak peek already and was told it's a girl. had severe pre-e. ordering baseline labs and early glucola for bmi 31 07/13/23 <del>?</del> 11w 6d 189 lb 6 oz 116/71 Negative <del>?</del> Negative 160 <del>?</del> LC- no vb/cramping. discussed and declines afp. started zoloft. passed early glucose. 08/11/23 <del>?</del> 16w 0d 188 lb 122/63 Negative <del>?</del> Negative <del>?</del> Sm- no vb cramping less sickness this 09/09/23 <del>?</del> 20w 1d 189 lb 122/87 <del>?</del> 145 20 <del>?</del> KW- no vb/cramping. + movement. having some burning with urination. Culture sent. US next week. KW- no vb/cramping. + movement. having some random burning with urination. encouraged increased hydration and Culture sent. US next week. encouraged chiropractor for back pain. 10/03/23 <del>?</del> 23w 4d 197 lb 2 oz 122/86 Negative <del>?</del> Negative 143 24 <del>?</del> LC-no vb/ctx/lof. good fm. 28 week labs ordered. 10/31/23 <del>?</del> 27w 4d 202 lb 8 oz 116/78 Negative <del>?</del> Negative 155 28 <del>?</del> LC- no vb/ctx/lof. good fm. passed glucose. 11/14/23 <del>?</del> 29w 4d 207 lb 4 oz 121/80 Negative <del>?</del> Negative 130 30.5 <del>?</del> JV- pt declines tdap. no complaints. + FM. 11/28/23 <del>?</del> 31w 4d 204 lb 4 oz 119/81 Negative <del>?</del> Negative 150 32 <del>?</del> JV- no lof, vaginal bleeding, or dec fm. worried about blood pressure. pt reassured today. 12/15/23 <del>?</del> 34w 0d 210 lb 117/78 Negative <del>?</del> Negative 140 34 <del>?</del> Sm- no vb lof good fm no reuglar ctx 12/26/23 <del>?</del> 35w 4d 210 lb 4 oz 125/75 Negative <del>?</del> Negative 146 36 <del>?</del> JV- no lof, vaginal bleeding, or dec fm. 01/02/24 <del>?</del> 36w 4d 215 lb 131/92 136/96 Negative <del>?</del> Negative 135 36 0 <del>?</del> 30 -3 LC- no lof/vb/ctx. good fm. elevate BP with visual changes. sent to [facility] for IOL with cytotec. reviewed with JV, agrees with POC. GBS collected NST FHR Rate Baby A Baseline: 130 Variability:: Moderate Accelerations:: 15 x 15 Decelerations:: None NST Reactive:: Yes FHR Category:: Category I Uterine Activity:: irregular ROS Eyes Eyes: Reports change in vision Cardiovascular Cardiovascular: Denies abdominal pain, chest pain, diaphoresis or dyspnea Respiratory/Chest Respiratory/Chest: Denies change in mental status, chest congestion, chest tightness, cough, shortness of breath at rest, shortness of breath with exertion, breast mass, breast pain, breast skin changes, breast swelling, change in breast shape or nipple discharge Genitourinary Genitourinary: Reports change in urinary stream Musculoskeletal Musculoskeletal: Reports none Integumentary Integumentary: Reports none Neurologic Neurologic: Reports none Psychiatric Psychiatric: Reports none Endocrine Endocrinology: Reports none Hematologic/Lymphatic Hematologic/Lymphatic: Reports none Allergic/Immunologic Allergic/Immunologic: Reports none Vital Signs Vital Signs Vital Signs: 01/02/24 12:13 01/02/24 12:13 01/02/24 12:13 Temperature Temperature Source Pulse Rate 92 Respiratory Rate Blood Pressure 136/80 H BP Systolic 136 BP Diastolic 80 Pulse Ox 98 01/02/24 13:59 01/02/24 13:59 01/02/24 15:38 Temperature Temperature Source Pulse Rate 77 Respiratory Rate Blood Pressure 131/93 H 146/86 H BP Systolic 131 146 BP Diastolic 93 86 Pulse Ox 01/02/24 15:38 01/02/24 15:38 01/02/24 15:44 Temperature Temperature Source Tympanic Pulse Rate 69 Respiratory Rate Blood Pressure BP Systolic BP Diastolic Pulse Ox 98 01/02/24 15:44 01/02/24 15:44 01/02/24 15:44 Temperature Temperature Source Pulse Rate 70 Respiratory Rate 16 Blood Pressure 146/86 H BP Systolic 146 BP Diastolic 86 Pulse Ox 01/02/24 15:44 01/02/24 15:44 01/02/24 16:43 Temperature 98.4 F Temperature Source Pulse Rate 87 Respiratory Rate Blood Pressure BP Systolic BP Diastolic Pulse Ox 99 01/02/24 16:43 01/02/24 16:44 01/02/24 16:44 Temperature Temperature Source Pulse Rate 68 Respiratory Rate Blood Pressure 136/77 H BP Systolic 136 BP Diastolic 77 Pulse Ox 97 01/02/24 16:44 01/02/24 16:44 01/02/24 16:44 Temperature 99.0 F Temperature Source Temporal Pulse Rate Respiratory Rate 16 Blood Pressure BP Systolic BP Diastolic Pulse Ox Weight Weight: 216 lb 7.903 oz Body Mass Index (BMI) 36.0 Physical Exam Const alert, oriented x3 and no apparent distress General Appearance: cooperative, comfortable and well kempt Orientation / Consciousness: awake and oriented to person Exam Limitations: no limitations HEENT normocephalic Neck full ROM Chest inspection of chest normal Resp normal respiratory effort, normal air movement and no retractions Effort and Inspection: able to speak in complete sentences and symmetric chest movement Cardio regular rate Peripheral Pulses: pulses 2+ throughout GI normal to inspection, nondistended, normoactive bowel sounds Inspection: gravid no CVA tenderness and appearance of the vagina normal External Female Exam: normal appearance of the urethra; Negative for external lesion OB / External & Speculum: external exam normal Manual OB Exam: estimated gestational size appropriate and presentation cephalic Uterus Palpation: Negative for uterus tender Extremity normal to inspection Skin no rashes or lesions noted Neuro deep tendon reflexes 2+ bilaterally and gait normal Motor Exam: strength 5/5 throughout and clonus absent Psych Activity / Motor Behavior: appropriate eye contact Speech: normal speech Labs Labs Labs: Blood Type O POSITIVE Antibody Screen NEGATIVE Hct 35.6 % (37-47) L Hgb 11.6 g/dL (12.0-15.0) L Syphilis Total Ab Non-reactive Rubella IgG Antibody Reactive (Nonreactive) Hep Bs Antigen Non-Reactive (Nonreactive) Hepatitis C Antibody Non-Reactive (Nonreactive) Chlamydia DNA (ISSA) Negative (Negative) N.gonorrhoeae DNA (ISSA) Negative (Negative) HIV 1&2 Antibody Non-Reactive (Nonreactive) Glucose 1 Hr 50 gm 121 mg/dL (70-140) Group B Strep DNA Negative (Negative) Rhogam given: No Assessment & Plan (1) Pre-eclampsia affecting childbirth: COMMENT: IOL with cytotec, hold on mg until labs result. (2) Obesity (BMI 30.0-34.9): COMMENT: 1 hr GTT at [facility], passed. (3) Genetic carrier: COMMENT: FOB has CD5-19-PID (4) History of pre-eclampsia in prior , currently : COMMENT: CMP, CBC, P/C ratio at [facility]: normal (5) Supervision of high risk , antepartum: COMMENT: [id number] ANGIE 01/26/24 girl PC Mylah Spouse Alejandro (6) : QUALIFIERS: Weeks of gestation: 36 weeks Qualified Code(s): Z3A.36 - 36 weeks gestation of COMMENT: low risk NIPT declined carrier and ntd screen. nl anatomy PLAN: Plan Patient presents IOL for PEC with severe features. BP 130s/90s. normal cbc, lft. Pain management: plans epidural. GBS unknown. collected today. start PCN until culture results. Management of any complications: none I have reviewed the [facility] and made any clinically relevant updates. updated on admission, poc and exam. co-management for PEC without magnesium. available for consultation as needed for blood pressure management.
[2024-01-02 18:08] LABS: Syphilis Antibodies Non-reactive
[2024-01-02] MEDS: 0.9% Normal Saline Single 100 ML IV.SOLN. INTRA-UTER (20:12)
[2024-01-02] MEDS: Acetaminophen 500 MG Tablet PO (20:15)
[2024-01-02] MEDS: LACTATED RINGERS 500 ML 999 ML IV (21:26)
[2024-01-02] MEDS: Vancomycin HCl 2,000 MG in 0.9% Normal Saline (500mL Bag) 500 ML 250 MG IV (21:51)
[2024-01-02] MEDS: fentaNYL-bupivacaine (epidural) 100 ML BAG EPIDURAL (22:25)
--- NOTE | 2024-01-02 22:29 | PCM.RX.CS ---
Consult Antibiotic Management Pharmacy has been consulted to manage selected antibiotic: Vancomycin Type of Intervention Type of Consult: New start Labs Labs: Creatinine 0.60 mg/dL (0.55-1.02) 01/02/24 14:15 Est GFR (MDRD) Af Amer 156 mL/min (>60) 01/02/24 14:15 Est GFR (MDRD) Non-Af 129 mL/min (>60) 01/02/24 14:15 Dosing Weight Weight used for dosin.2 kg Goal Trough Goal Trough: 10-15 mcg/mL Pharmacy Plan for Drug Dosing Pharmacy Plan for Drug Dosing: Pharmacy Service will continue to monitor and adjust dosing as required. 2GM Q8H AND FOLLOW UP TROUGH PRIOR TO 4TH DOSE Follow-Up Labs Follow-Up Labs: Trough: Vancomycin Date/Time Labs Ordered Labs to be done on [date and time ordered]: 01/02 @ 2100
[2024-01-02] MEDS: DiphenhydrAMINE 50 MG/ML Syringe IV (23:21)
[2024-01-03] VITALS (44 sets, daily range): BP systolic 111–164; BP diastolic 56–106; PULSE 54–104; RESP 14–20; TEMP 36.6–37.4; O2SAT 97–100
[2024-01-03] MEDS: Oxytocin 15 Units/NS 250ml 15 UNITS/250 ML IV.SOLN 2 UNITS IV (00:26)
[2024-01-03] MEDS: Lactated Ringers 1,000 ML 200 ML IV ×2 (00:28→05:24)
[2024-01-03] MEDS: fentaNYL-bupivacaine (epidural) 100 ML BAG EPIDURAL (03:28)
--- NOTE | 2024-01-03 04:15 | PCM.PN.OB ---
Subjective Subjective comfortable with epidural Objective Data Objective Data Vital Signs: Vital Signs Temp Pulse Resp BP Pulse Ox 98.9 F 74 16 112/67 98 01/03/24 02:52 01/03/24 02:52 01/03/24 02:52 01/03/24 02:52 01/03/24 02:52 Weight: 216 lb 7.903 oz Body Mass Index (BMI) 36.0 Intake & Output: Intake and Output for Last 24 Hours 01/01/24 01/02/24 01/03/24 23:59 23:59 23:59 Intake Total 1159.17 / 1159.17 889.36 / 889.36 Output Total 1200 / 1200 Balance 1159.17 / 1159.17 -310.64 / -310.64 Lab / Micro Data 01/02/24 14:15 01/02/24 14:15 Labs: Laboratory Results - last 24 hr 01/02/24 14:15: WBC 12.7 H, RBC 4.15 L, Hgb 11.6 L, Hct 35.6 L, MCV 85.8, MCH 28.0, MCHC 32.6, RDW Std Deviation 41.7, RDW Coeff of Vickie 13.4, Plt Count 309, MPV 10.5, Immature Gran % (Auto) 0.500, Neut % (Auto) 81.0 H, Lymph % (Auto) 12.7 L, Toombs % (Auto) 5.0, Eos % (Auto) 0.6, Baso % (Auto) 0.2, Absolute Neuts (auto) 10.3 H, Absolute Lymphs (auto) 1.62, Nucleated RBC % 0, Creatinine 0.60, Est GFR (MDRD) Af Amer 156, Est GFR (MDRD) Non-Af 129, Uric Acid 5.0, AST 10 L, ALT 9 L, U Random Total Protein < 6.0, Urine Creatinine 20.80, Protein/Creatinin Ratio 279 H, Syphilis Total Ab Non-reactive, Blood Type O POSITIVE, Antibody Screen NEGATIVE Physical Exam Const alert and no apparent distress Resp normal respiratory effort, normal air movement and no retractions Cardio regular rate and regular rhythm Manual OB Exam: presentation cephalic, dilated 5, effaced 55 and station -2 Amniotic Fluid: clear amniotic fluid Extremity normal to inspection Psych mental status grossly normal NST FHR Rate Baby A Baseline: 130 Variability:: Moderate Accelerations:: 15 x 15 Decelerations:: None NST Reactive:: Yes FHR Category:: Category I Uterine Activity:: q3 minutes Assessment & Plan (1) Pre-eclampsia affecting childbirth: COMMENT: IOL with cytotec, hold on mg until labs result. (2) Obesity (BMI 30.0-34.9): COMMENT: 1 hr GTT at [facility], passed. (3) Supervision of high risk , antepartum: COMMENT: [id number] ANGIE 01/26/24 girl PC [facility] Spouse Alejandro (4) : QUALIFIERS: Weeks of gestation: 36 weeks Qualified Code(s): Z3A.36 - 36 weeks gestation of COMMENT: low risk NIPT declined carrier and ntd screen. nl anatomy (5) Encounter for induction of labor: COMMENT: cytotec x1, robles bulb, AROM, pitocin PLAN: Plan at 36.5 IOL for PEC with severe features. comfortable with epidural. AROM for clear fluid. current tracing: FHT: Moderate variability reactive no decelerations category I tracing [place]: q2-3 minutes Contractions reviewed tracing abnormalities since last note: cat 1 A/P: cat 1 tracing. reassuring mat/ monitoring. active labor. -AROM clear fluid after vanco dose. - continue on pitocin protocol -frequent repositioning
--- NOTE | 2024-01-03 08:30 | OP.PCM_ITS ---
Assessment & Plan (1) Vaginal delivery: COMMENT: KW- 36.6 IOL Pre E. Girl Gracie (2) Pre-eclampsia affecting childbirth: COMMENT: IOL with cytotec, hold on mg until labs result. (3) Obesity (BMI 30.0-34.9): COMMENT: 1 hr GTT at [facility], passed. (4) History of pre-eclampsia in prior , currently : COMMENT: CMP, CBC, P/C ratio at NOB: normal (5) Supervision of high risk , antepartum: COMMENT: [id number] ANGIE 01/26/24 girl JOSE Ch Spouse Alejandro (6) : QUALIFIERS: Weeks of gestation: 36 weeks Qualified Code(s): Z3A.36 - 36 weeks gestation of COMMENT: low risk NIPT declined carrier and ntd screen. nl anatomy Maternal Data Information ANGIE Calculator Estimated Delivery Date Method Current WG Current Estimate 01/26/24 LMP (Certain) 36w 5d Final ANGIE: 01/26/24 Final ANGIE Source: US >20 weeks Gestational age: 36.5 Vaginal Delivery Maternal Presentation Maternal Presentation: Progressed well to 10cm dilated and made steady progress with effective maternal pushing. Delivered the head in MERE presentation. The head was delivered atraumatically and a tight nuchal cord was identified and infant was easily somersaulted through. The anterior and posterior shoulders delivered without complication followed by the rest of the and the infant was placed on the maternal abdomen. Delayed cord clamping was employed for approximately 3 minutes. Cord was clamped and cut and gentle traction was applied to the cord and the placenta delivered spontaneously. Immediately following, it was noted to be intact with a 3 vessel cord. The perineum and vagina were inspected and noted to have no laceration. EBL was 100cc. Patient and tolerated delivery well. Apgars 8/9. Dr Becerra notified of vaginal delivery and orders reviewed. Physician agrees with current plan of care. Type of Induction: Cytotec Medical Reason for Induction: Preeclampsia, eclampsia Operative Information Date of Procedure: 01/03/24 Pre-Operative Diagnosis: See AP comments Post-Operative Diagnosis: Same Surgery / Procedure Performed: Spontaneous Vaginal Delivery shot peening operator #1: Bridgette Car Type of Anesthesia: Epidural Estimated Blood Loss: 100 Time of Delivery: 08:15 Findings Presentation: Vertex Amniotic Membrane Rupture Type: Artificial Amniotic Fluid Description: Clear Placental Delivery Description: Spontaneous Placenta Disposition: [facility] Cord Vessel Description: 3 Vessels Cord Entanglement: Around neck x 1, tight A Gender: Female (1 minute): 8 (5 minute): 9 Delayed Cord Clamping: Yes Post Vaginal Delivery Medications Given After Delivery: IV Pitocin Episiotomy Description: None Laceration: None Complication Complications: None Multi Select Codes Urinary/Genital Urinary/Genital CPT Codes: 26494 Vaginal Delivery [facility]
--- NOTE | 2024-01-03 08:35 | DCINST_ITS ---
Discharge Instructions Diet Discharge Diet: No restrictions Activity Discharge Activity: Return to Normal Activity May resume sexual activity in: 6-8 weeks Dressing / Incision Call your doctor if you observe: Fever of 101 or Higher, Coldness, Increased Pain, Numbness or Tingling, Change in Color, Inability to urinate, Inability to have a bowel movement, Using more than 1 pad per hour, Shortness of breath, Dizziness, Fainting spells, Swelling in the ankles, Chest pain, Increased palpitations (irregular heartbeat), Calf discomfort and Uncontrolled pain Follow Up Care Please Follow Up With: Bridgette Car CNM When: Please call the office to schedule your follow up appointment in 6 weeks. If you had high blood pressure please call to schedule an appointment in 2 weeks. Test Results: Test results from this visit will be discussed in further detail at your follow- up appointment, if applicable. Discharge Plan Admission Admit Date/Time: 01/02/24 11:45 Attending Provider: Bridgette Car Primary Care Provider: Pooja Johnson Discharge Orders/Prescriptions Prescriptions: No Action levothyroxine 25 mcg capsule 25 mcg PO DAILY PNV cmb 62-flcs-KM-omega-3-dha 29 mg iron- 1 mg-200 mg combo pack PO DAILY sertraline [Zoloft] 25 mg tablet 25 mg PO DAILY famotidine [Pepcid] 20 mg tablet 20 mg PO BID Qty: 90 4RF ondansetron 4 mg tablet,disintegrating 4 mg PO Q6H PRN (Reason: nausea and vomiting) Qty: 30 4RF Referrals / Follow Up: Pooja Johnson, [employer] [Primary Care Provider] -
[2024-01-03] MEDS: Oxytocin 15 Units/NS 250ml 15 UNITS/250 ML IV.SOLN 83 UNITS IV (09:15)
[2024-01-03] MEDS: Acetaminophen 500 MG Tablet 1000 MG PO ×2 (09:35→15:25)
--- NOTE | 2024-01-03 16:01 | NURSING ---
1530 pt c/o headache rates a 3/10 pt resting in bed with a cold washcloth on her head- this nurse had the patient lie flat for 5 minutes and there was no change in her headache
[2024-01-03] MEDS: Ibuprofen 600 MG Tablet PO (17:43)
[2024-01-04 02:59] VITALS: BP 141/86; PULSE 67; PULSE 69; O2SAT 98
[2024-01-04 03:00] VITALS: BP 141/86; PULSE 70; RESP 16; TEMP 36.6; O2SAT 98
[2024-01-04] MEDS: Levothyroxine 25 MCG TABLET PO (05:33)
[2024-01-04 07:46] VITALS: BP 122/66; PULSE 70
--- NOTE | 2024-01-04 07:47 | PCM.PN.OB ---
Subjective Subjective Patient doing well without complaints. Tolerating PO. Ambulating and voiding without difficulty. Feeding well. Denies chest pain, shortness of breath, calf pain/swelling, fevers, chills, lightheadedness, headache. Objective Data Objective Data Vital Signs: Vital Signs Temp Pulse Resp BP Pulse Ox O2 Del Method 98 F 70 16 122/66 H 98 Room Air 01/04/24 03:00 01/04/24 07:46 01/04/24 03:00 01/04/24 07:46 01/04/24 03:00 01/04/24 03:00 Oxygen Delivery Method Room Air Weight: 216 lb 7.903 oz Body Mass Index (BMI) 36.0 Intake & Output: Intake and Output for Last 24 Hours 01/02/24 01/03/24 01/04/24 23:59 23:59 23:59 Intake Total 1159.17 / 1159.17 2937.50 / 2937.50 Output Total 4700 / 4700 Balance 1159.17 / 1159.17 -1762.50 / -1762.50 Lab / Micro Data 01/02/24 14:15 01/02/24 14:15 Physical Exam Const alert and oriented x3 HEENT normocephalic Eyes PERRL Neck full ROM Resp normal respiratory effort GI soft to palpation GI Narrative: FF below U Assessment & Plan (1) Vaginal delivery: COMMENT: KW- 36.6 IOL Pre E. Girl Gracie (2) History of pre-eclampsia: PLAN: Plan s/p PPD #1 1. routine post delivery care 2. breast feeding- support given 3. rh positive 4. rubella immune 5. BP stable 6. home today
[2024-01-04 09:20] VITALS: BP 122/71; PULSE 80; RESP 18; TEMP 36.6
[2024-01-04 13:01] VITALS: BP 132/81; PULSE 71
--- NOTE | 2024-01-04 13:38 | CASEMGMT ---
Social Work Assessment Labor and Delivery Unit Patient Address: [address] [place] [address] [address] [place] [address] Phone number: [phone] Date of Referral: 01/03/24 Time of Referral:? [id number] Referred By: Charge nurse Date of Intervention: ??01/04/24 Time of Intervention:? 1300 Reason for Referral:? hx anxiety and depression Sw completed chart review and acknowledges social work consult due to maternal mental health history of anxiety and depression. Sw presented to bedside and introduced self to mother of baby (YISEL- Briseyda) and father of baby (LISSY- Alejandro). Sw explained sw role during hospitalization and completed psychosocial assessment. History obtained from: medical records, MOB and FOB Household composition: Currently residing in the family home is LISSY MORILLO, their 3 year old daughter (Dima- 3 years old) and now baby. Patient's parent/guardian status:? YISEL states that she and LISSY have always known each other, as LISSY is best friends with YISEL's brother. YISEL states that they started dating each other in 2019 and they have been for one year. No concerns reported of domestic violence or intimate partner violence. Medical History: ?YISEL is 23 year old female who is 2, para 1- now 2 following labor and delivery of . YISEL received routine care during with [facility]. YISEL presented to hospital on 01/03/24 and delivered baby at 36 weeks gestation following induction of labor. Baby girl, named Gracie, was born weighing 6lb 4oz and her apgars were 8 and 9 at one and five minutes of life, respectfully. YISEL states that she is breast feeding and this is going well. YISEL reports that baby will be followed by Dr. Salcedo for pediatrics. Educational Status:? YISEL states that she and LISSY both graduated from high school, she attended some college courses but did not graduate with a degree. Went to cosmetology school. No concerns with reading, learning or comprehension. Financial Status: Both parents are gainfully employed outside of the home. 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 Infant Supplies:?? Parents have all necessary baby supplies, including: car seat, safe sleep space, clothes, diapers and wipes. MOB states that she has a breast pump. Childcare/Caregiver(s):? MOB will be the primary caregiver to baby along with FOB when he is not working. When both parents are working maternal grandma will assist with childcare. Transportation:?? Both parents have their drivers license, and reliable means of transportation. No barriers at this time. Programs/Agencies Involved: MOB and her older daughter are connected to [employer] through [employer] [facility] [employer]. MOB denies any other linkage to community resources that assist them financially. ??? Children Services/Legal Issues:???NO history of involvement, no issues or concerns warranting referral to be made at this time. Behavioral Health Issues: ??Mental Health History: FONichelle denies mental health diagnoses. MOB states that she has always struggled with anxiety and sometimes depression. MOB reports that she was put on zoloft at beginning of to help manage her mental health symptoms. MOB states that after her first daughter was born she does believe that she struggled with anxiety. MOB states that during that time she was anxious over minute things. MOB states that she is aware of signs and symptoms to look out for. FOB states that he believes he would be able to recognize a change in MOB's mental health status and would know how to support her if she were to struggle. ??? Substance Use History:?MOB denies substance use prior to and during . ? Family History: Parents deny family history of substance use and addiction as well as significant mental health diagnoses such as anxiety and depression.? Drug Screens: ??No toxicology screens observed in chart review. Family/Social Stressors:? Parents deny any issues or concerns at this time. Support Systems: MOB reports that both grandmother's are supportive. Depression/Shaken Baby/Safe Sleeping:? Maria Luisa educated parents on signs and symptoms of baby blues and depression and anxiety to be on the lookout for. Parents express understanding. Sw educated parents on shaken baby prevention and ABCs of safe sleep- and encouraged to educate their three year old daughter on importance. Parents express understanding. ASSESSMENT:? MOB and baby admitted following labor and delivery. Both parents present during completion of psychosocial assessment. FOB more reserved and quiet, and MOB more open and talkative. Parents have obtained all necessary baby supplies and have natural supports in place. Symptoms of mood disorders discussed and understanding expressed. Parents observed to provide loving and appropriate hands on care of . Parents were open and receptive to sw involvement and support. Literature for parents to review provided regarding mood disorders and resources available. PLAN:? MOB and baby to be discharged when medically ready. ?No other services requested or indicated. Sisi Wallis, GREY WASHER, [employer]OLLEY CLE[employer]ER
[2024-01-04 13:59] VITALS: BP 132/81; PULSE 71; RESP 18; TEMP 36.9; O2SAT 98
== END 2024-01-04 15:00 | disposition home or self-care (01) | DRG 807 ==
PROVIDERS: Registered Nurse; Admitting Provider Advanced Practice Midwife; PCP Nurse Practitioner Family; Referring Provider Advanced Practice Midwife; Visit Provider Advanced Practice Midwife
DX: O14.14 Severe pre-eclampsia complicating childbirth (principal); Z37.0 Single live birth; O60.14X0 Preterm labor third trimester with preterm delivery third trimester, not applicable or unspecified; E66.8 Other obesity; O99.214 Obesity complicating childbirth; O69.1XX0 Labor and delivery complicated by cord around neck, with compression, not applicable or unspecified; Z3A.36 36 weeks gestation of pregnancy; Z87.59 Personal history of other complications of pregnancy, childbirth and the puerperium; Z87.891 Personal history of nicotine dependence
CPT/HCPCS: 59025; 59050; 82565; 82570; 84156; 84450; 84460; 84550; 85025; 86780; 86850; 86900; 86901; 99221; J7040; J7120; G0378

== ENCOUNTER → 2024-01-02 | Outpatient (CLI) | payer BC, MEDICAID, SELFPAY ==
[2024-01-02 13:40] LABS: Protein, Urine (Random) 17.4 mg/dL (<11.9); Protein:Creat Ratio 250 mg/g CRE (0-200)
[2024-01-02 13:59] LABS: Group B Strep DNA By PCR Negative (Negative); Internal Control PASS; Probe Check PASS; Specimen Processing Control PASS
== END | disposition home or self-care (01) ==
PROVIDERS: PCP Nurse Practitioner Family; Referring Provider Registered Nurse; Visit Provider Registered Nurse
DX: O09.299 Supervision of pregnancy with other poor reproductive or obstetric history, unspecified trimester (principal); Z3A.00 Weeks of gestation of pregnancy not specified
CPT/HCPCS: 82570; 84156; 87081; 87653

== ENCOUNTER → 2024-02-13 | Outpatient (CLI) | payer BC, MEDICAID, SELFPAY ==
[2024-02-16 20:37] LABS: HPV Reflexed? NOT INDICATED
== END | disposition home or self-care (01) ==
LOC: LABSPEC 12:00
PROVIDERS: PCP Nurse Practitioner Family; Referring Provider Nurse Practitioner Women's Health; Visit Provider Nurse Practitioner Women's Health
DX: Z12.4 Encounter for screening for malignant neoplasm of cervix (principal)
CPT/HCPCS: 88175; G0145